=== PATIENT | male | born 1970 | race Caucasian/White ===

== ENCOUNTER 2017-02-10 17:06 | Emergency (ER) | payer OTHER ==
[2017-02-10] MEDS ORDERED: BUPIVACAINE HCL 0.5 % INJ/PF 30 ML SDV INJ ONE (17:59)
[2017-02-10] MEDS ORDERED: PENICILLIN V POTASSIUM 500 MG TABLET PO ONE (17:59)
[2017-02-10] MEDS ORDERED: HYDROCODONE/ACETAMINOPHEN 5-325 MG TABLET PO ONE (18:00)
[2017-02-10] MEDS ORDERED: HYDROCODONE/ACETAMINOPHEN 5-325 MG 6 TAB/DSPK PO PRN (18:00)
--- NOTE | 2017-02-10 18:20 | ER Document Report ---
HPI - HPI Patient complains to provider of: tooth ache Onset: Other - started on friday, 3 days ago Onset/Duration: Sudden Quality of pain: Achy, Throbbing Pain Level: 4 Associated Symptoms: Other - dental caries and fractured teeth Similar symptoms previously: No Recently seen / treated by doctor: No - CARDIOVASCULAR Cardiovascular: DENIES: Chest pain - DERM Skin Color: Normal Past Medical History - Social History Smoking Status: Former Smoker Chew tobacco use (# tins/day): No Frequency of alcohol use: Occasional Drug Abuse: None Family History: Reviewed & Not Pertinent Patient has suicidal ideation: No Patient has homicidal ideation: No Renal/ Medical History: Reports: Hx Kidney Stones. Denies: Hx Peritoneal Dialysis Past Surgical History: Reports: Hx Kidney (Renal Surgery) - stents - Immunizations Hx Diphtheria, Pertussis, Tetanus Vaccination: No Vertical Provider Document - CONSTITUTIONAL Agree With Documented VS: Yes Exam Limitations: No Limitations General Appearance: WD/WN, No Apparent Distress - INFECTION CONTROL TRAVEL OUTSIDE OF THE [place] IN LAST 30 DAYS: No - HEENT HEENT: Atraumatic, Normal ENT Exam, Normocephalic, PERRLA Mouth Diagram: 1 - dental abscess Notes: Uvula midline. Airway patent. No evidence of tonsillar enlargement, peritonsillar abscess, retropharyngeal abscess. - NECK Neck: Normal Inspection. negative: Lymphadenopathy-Left, Lymphadenopathy-Right - RESPIRATORY Respiratory: Breath Sounds Normal, No Respiratory Distress, Chest Non-Tender O2 Sat by Pulse Oximetry: 96 - CARDIOVASCULAR Cardiovascular: Regular Rate, Regular Rhythm, No Murmur - NEURO Level of Consciousness: Awake, Alert, Appropriate Motor/Sensory: No Motor Deficit, No Sensory Deficit Course - Re-evaluation Re-evalutation: 02/10/17 19:34 Is a 47-year-old male who is hemodynamic stable, no acute distress and afebrile. Patient was anesthetized bedside using 5 cc of Sensorcaine for digital block with complete resolution of his pain. I&D performed using 18- gauge and then scalpel to extend abscess with drainage of approximately 4 cc of purulent material. Patient initiated on antibiotics and pain control and told to follow-up with dentist. - Vital Signs Vital signs: Temp Pulse Resp BP Pulse Ox 98.5 F 101 H 20 134/90 H 96 02/10/17 17:08 02/10/17 17:08 02/10/17 17:08 02/10/17 17:08 02/10/17 17:08 Procedures - Incision and Drainage Face Type: Simple - dental abscess Anesthetic type: 0.5% Bupivacaine mL's of anesthetic: 5 Incision Method: Incision made with needle Amount/type of drainage: 4cc purulent material Mouth/Teeth picture: 1 - abscess Discharge - Discharge Clinical Impression: Dental abscess Condition: Good Disposition: HOME, SELF-CARE Instructions: Abscess ([facility]), [facility], Penicillin V K ([facility]), Oral Narcotic Medication ([facility]), Post Incision and Drainage Additional Instructions: Please follow-up with the [facility] to be evaluated by a dentist. Take your antibiotics as prescribed Prescriptions: Penicillin V Potassium [Penicillin Vk 500 mg Tablet] 500 mg PO QID 7 Days Forms: Elevated Blood Pressure [facility] [NO LOCAL MD] - Follow up in 1 week
[2017-02-10 19:01] VITALS: BP 148/86
== END 2017-02-10 18:59 | disposition home or self-care (01) ==
LOC: ER 17:06
PROC: 0C9WXZ0 Drainage of Upper Tooth, External Approach, Single (ICD-10-PCS; principal; 2017-02-10)
DX: K04.7 Periapical abscess without sinus (principal); K02.9 Dental caries, unspecified; Z87.442 Personal history of urinary calculi
CPT/HCPCS: 99282

== ENCOUNTER 2017-03-09 13:09 | Emergency (ER) | payer OTHER ==
[2017-03-09 13:31] VITALS: BP 145/108
--- NOTE | 2017-03-09 14:26 | ER Document Report ---
ED General - General Chief Complaint: Toothache Stated Complaint: MOUTH PAIN Time Seen by Provider: 03/09/17 14:04 Mode of Arrival: Ambulatory Information source: Patient Notes: 47 yr old male hx of dental abscess for which he was seem 2 weeks ago presents with complaitns of dental pain and abscess which started to drain. pt denies any fevers or chills, TRAVEL OUTSIDE OF THE [place] IN LAST 30 DAYS: No - HPI Onset: Other Onset/Duration: Persistent Quality of pain: Achy Severity: Mild Pain Level: 1 Associated symptoms: Other Exacerbated by: Food Relieved by: Denies Similar symptoms previously: Yes Recently seen / treated by doctor: Yes - Related Data Allergies/Adverse Reactions: No Known Allergies Allergy (Verified 03/09/17 13:30) Past Medical History - Social History Smoking Status: Never Smoker Cigarette use (# per day): No Chew tobacco use (# tins/day): No Smoking Education Provided: No Family History: Reviewed & Not Pertinent Renal/ Medical History: Reports: Hx Kidney Stones. Denies: Hx Peritoneal Dialysis Past Surgical History: Reports: Hx Kidney (Renal Surgery) - stents - Immunizations Hx Diphtheria, Pertussis, Tetanus Vaccination: No Review of Systems - Review of Systems Notes: REVIEW OF SYSTEMS: CONSTITUTIONAL : Denies fever, chills, or sweats. Denies recent illness. EENT: dental pain CARDIOVASCULAR: Denies chest pain. Denies palpitations or racing or irregular heart beat. Denies ankle edema. RESPIRATORY: Denies cough, cold, or chest congestion. Denies shortness of breath, difficulty breathing, or wheezing. GASTROINTESTINAL: Denies abdominal pain or distention. Denies nausea, vomiting , or diarrhea. Denies blood in vomitus, stools, or per rectum. Denies black, tarry stools. Denies constipation. GENITOURINARY: Denies difficulty urinating, painful urination, burning, frequency, blood in urine, or discharge. MUSCULOSKELETAL: Denies back or neck pain or stiffness. Denies joint pain or swelling. SKIN: Denies rash, lesions or sores. HEMATOLOGIC : Denies easy bruising or bleeding. LYMPHATIC: Denies swollen, enlarged glands. NEUROLOGICAL: Denies confusion or altered mental status. Denies passing out or loss of consciousness. Denies dizziness or lightheadedness. Denies headache. Denies weakness or paralysis or loss of use of either side. Denies problems with gait or speech. Denies sensory loss, numbness, or tingling. Denies seizures. PSYCHIATRIC: Denies anxiety or stress. Denies depression, suicidal ideation, or homicidal ideation. ALL OTHER SYSTEMS REVIEWED AND NEGATIVE. Dictation was performed using [employer] voice recognition software PHYSICAL EXAMINATION: GENERAL: Well-appearing, well-nourished and in no acute distress. HEAD: Atraumatic, normocephalic. EYES: Pupils equal round and reactive to light, extraocular movements intact, sclera anicteric, conjunctiva are normal. ENT: poor dentition,abscess above gum #11 NECK: Normal range of motion, supple without lymphadenopathy LUNGS: Breath sounds clear to auscultation bilaterally and equal. No wheezes rales or rhonchi. HEART: Regular rate and rhythm without murmurs ABDOMEN: Soft, nontender, nondistended abdomen. No guarding, no rebound. No masses appreciated. Musculoskeletal: Normal range of motion, no pitting or edema. No cyanosis. NEUROLOGICAL: Cranial nerves grossly intact. Normal speech, normal gait. Normal sensory, motor exams PSYCH: Normal mood, normal affect. SKIN: Warm, Dry, normal turgor, no rashes or lesions noted. Physical Exam - Vital signs Vitals: Temp Pulse Resp BP Pulse Ox 98.8 F 81 16 145/108 H 97 03/09/17 13:30 03/09/17 13:30 03/09/17 13:30 03/09/17 13:30 03/09/17 13:30 Course - Re-evaluation Re-evalutation: 03/09/17 15:07 Area was incised and drained patient will be started on antibiotics he has been given a list of dentists to follow-up within 1 week After performing a Medical Screening Examination, I estimate there is LOW risk for a DEEP SPACE INFECTION (e.g., JASON'S ANGINA OR RETROPHARYNGEAL ABSCESS), MENINGITIS, INTRACRANIAL HEMORRHAGE, or AIRWAY COMPROMISE, thus I consider the discharge disposition reasonable. Also, there is no evidence or peritonitis, sepsis, or toxicity. I have reevaluated this patient multiple times and no significant life threatening changes are noted. The patient and I have discussed the diagnosis and risks, and we agree with discharging home with close follow-up with the understanding that symptoms and presentations can change. We also discussed returning to the Emergency Department immediately if new or worsening symptoms occur. We have discussed the symptoms which are most concerning (e.g., changing or worsening pain, trouble swallowing or breathing, neck stiffness or fever) that necessitate immediate return. - Vital Signs Vital signs: Temp Pulse Resp BP Pulse Ox 98.8 F 81 16 145/108 H 97 03/09/17 13:30 03/09/17 13:30 03/09/17 13:30 03/09/17 13:30 03/09/17 13:30 Procedures - Incision and Drainage Left Mid- Face Time completed: 15:05 Type: Simple Anesthetic type: 1% Lidocaine mL's of anesthetic: 5 Blade size: 11 I&D procedure: Sterile dressing applied Incision Method: Incision made by scalpel Amount/type of drainage: small amoiunt of pus Discharge - Discharge Clinical Impression: Dental abscess, Dental abscess Condition: Stable Disposition: HOME, SELF-CARE Instructions: Abscess ([facility]) Prescriptions: Penicillin V Potassium [Penicillin Vk 500 mg Tablet] 500 mg PO Q6 #40 tablet
== END 2017-03-09 15:35 | disposition home or self-care (01) ==
LOC: ER 13:09
DX: K04.7 Periapical abscess without sinus (principal); K08.89 Other specified disorders of teeth and supporting structures
CPT/HCPCS: 99282

== ENCOUNTER 2017-04-15 16:21 | Emergency (ER) | payer OTHER ==
--- NOTE | 2017-04-15 16:39 | ER Document Report ---
ED General - General Chief Complaint: Probable Seizure Stated Complaint: POSSIBLE SEZIURE Time Seen by Provider: 04/15/17 16:25 Mode of Arrival: Medic Information source: Patient Notes: 47-year-old male presents after seizure-like episode with concerns of agitation per EMS. It appears 6 different men had to attempt to hold this patient on after his seizure episode patient was given Versed and has since calmed down and has no complaints. When I evaluate the patient physically he has no abnormalities is stable well-appearing no distress TRAVEL OUTSIDE OF THE [place] IN LAST 30 DAYS: No - HPI Onset: Just prior to arrival Onset/Duration: Sudden Quality of pain: No pain Severity: Mild Pain Level: Denies Associated symptoms: Other Exacerbated by: Denies Relieved by: Denies Similar symptoms previously: No Recently seen / treated by doctor: No - Related Data Allergies/Adverse Reactions: No Known Allergies Allergy (Verified 03/09/17 13:30) Past Medical History - Social History Smoking Status: Never Smoker Cigarette use (# per day): No Chew tobacco use (# tins/day): No Smoking Education Provided: No Family History: Reviewed & Not Pertinent Renal/ Medical History: Reports: Hx Kidney Stones. Denies: Hx Peritoneal Dialysis Past Surgical History: Reports: Hx Kidney (Renal Surgery) - stents - Immunizations Hx Diphtheria, Pertussis, Tetanus Vaccination: No Review of Systems - Review of Systems Notes: REVIEW OF SYSTEMS: CONSTITUTIONAL : Denies fever, chills, or sweats. Denies recent illness. EENT: Denies eye, ear, throat, or mouth pain or symptoms. Denies nasal or sinus congestion or discharge. Denies throat, tongue, or mouth swelling or difficulty swallowing. CARDIOVASCULAR: Denies chest pain. Denies palpitations or racing or irregular heart beat. Denies ankle edema. RESPIRATORY: Denies cough, cold, or chest congestion. Denies shortness of breath, difficulty breathing, or wheezing. GASTROINTESTINAL: Denies abdominal pain or distention. Denies nausea, vomiting , or diarrhea. Denies blood in vomitus, stools, or per rectum. Denies black, tarry stools. Denies constipation. GENITOURINARY: Denies difficulty urinating, painful urination, burning, frequency, blood in urine, or discharge. MUSCULOSKELETAL: Admits chronic back pain SKIN: Denies rash, lesions or sores. HEMATOLOGIC : Denies easy bruising or bleeding. LYMPHATIC: Denies swollen, enlarged glands. NEUROLOGICAL: Admits to seizure-like activity PSYCHIATRIC: Denies anxiety or stress. Denies depression, suicidal ideation, or homicidal ideation. ALL OTHER SYSTEMS REVIEWED AND NEGATIVE. Dictation was performed using [employer] voice recognition software PHYSICAL EXAMINATION: GENERAL: Well-appearing, well-nourished and in no acute distress. HEAD: Atraumatic, normocephalic. EYES: Pupils equal round and reactive to light, extraocular movements intact, sclera anicteric, conjunctiva are normal. ENT: Nares patent, oropharynx clear without exudates. Moist mucous membranes. NECK: Normal range of motion, supple without lymphadenopathy LUNGS: Breath sounds clear to auscultation bilaterally and equal. No wheezes rales or rhonchi. HEART: Regular rate and rhythm without murmurs ABDOMEN: Soft, nontender, nondistended abdomen. No guarding, no rebound. No masses appreciated. Musculoskeletal: Normal range of motion, no pitting or edema. No cyanosis. NEUROLOGICAL: Cranial nerves grossly intact. Normal speech, normal gait. Normal sensory, motor exams patient was able to ambulate with no difficulty PSYCH: Normal mood, normal affect. SKIN: Warm, Dry, normal turgor, no rashes or lesions noted. Physical Exam - Vital signs Vitals: Temp Pulse BP Pulse Ox 97.4 F 132 H 139/94 H 97 04/15/17 16:45 04/15/17 16:45 04/15/17 16:45 04/15/17 16:45 Course - Re-evaluation Re-evalutation: 04/15/17 16:37 Patient refuses to stay, he denies any symptoms he is alert oriented 4 he is able to ambulate. His girlfriend is in the room who agrees with his decision to leave. Patient otherwise in no distress I do not think this is a smart decision however given that he is oriented and understand the risks and benefits I will let him go After performing a Medical Screening Examination, I spoke with the patient at length in regards to leaving the hospital against medical advice. I do not believe the patient should leave but the patient is alert oriented x4, understands the risks and benefits of staying and leaving including disability and . Pt understands that he can return at any time for further care and is more than welcome to do so. Pt verbalizes this understanding. 04/15/17 18:28 - Vital Signs Vital signs: Temp Pulse Resp BP Pulse Ox 97.4 F 132 H 139/94 H 97 04/15/17 16:45 04/15/17 16:45 04/15/17 16:45 04/15/17 16:45 Discharge - Discharge Clinical Impression: Seizure, Aggressiveness Condition: Stable Disposition: HOME, SELF-CARE Instructions: New Seizure ([facility])
[2017-04-15 17:01] VITALS: BP 139/94
== END 2017-04-15 17:01 | disposition home or self-care (01) ==
LOC: ER 16:21
DX: R56.9 Unspecified convulsions (principal); R45.1 Restlessness and agitation
CPT/HCPCS: 99284

== ENCOUNTER 2020-01-18 13:17 | Emergency (ER) | payer OTHER ==
[2020-01-18 13:26] VITALS: BP 139/92
== END 2020-01-18 13:59 | disposition left against medical advice (07) ==
LOC: ER 13:17
DX: Z53.21 Procedure and treatment not carried out due to patient leaving prior to being seen by health care provider (principal)

== ENCOUNTER 2020-03-23 12:10 | Inpatient (IN) | payer SELFPAY ==
[2020-03-23 13:06] LABS: ABSOLUTE BASOPHILS # (AUTO) 0.1 10^3/uL (0.0-0.2); ABSOLUTE LYMPHOCYTES (AUTO) 1.4 10^3/uL (0.5-4.7); ABSOLUTE MONOCYTES (AUTO) 0.8 10^3/uL (0.1-1.4); ABSOLUTE NEUT (AUTO) 8.1 10^3/uL (1.7-8.2); BASOPHILS % (AUTO) 0.5 % (0-2); EOSINOPHILS % (AUTO) 0.3 % (0-6); HEMATOCRIT 46.2 % (37.9-51.0); HEMOGLOBIN 14.7 g/dL (13.5-17.0); LYMPHOCYTES % (AUTO) 13.3 % (13-45); MEAN CORPUSCULAR HEMOGLOBIN 26.6 pg (27.0-33.4); MEAN CORPUSCULAR HGB CONC 31.8 g/dL (32.0-36.0); MEAN CORPUSCULAR VOLUME 84 fl (80-97); MONOCYTES % (AUTO) 7.3 % (3-13); PLATELET COUNT 336 10^3/uL (150-450); RED BLOOD COUNT 5.51 10^6/uL (4.35-5.55); RED CELL DISTRIBUTION WIDTH 15.2 % (11.5-14.0); SEGMENTED NEUTROPHILS % (AUTO) 78.6 % (42-78); TOTAL CELLS COUNTED % (AUTO) 100 %; WHITE BLOOD COUNT 10.3 10^3/uL (4.0-10.5)
[2020-03-23 13:12] LABS: ALBUMIN 4.2 g/dL (3.5-5.0); ALKALINE PHOSPHATASE 84 U/L (38-126); ANION GAP 11 (5-19); ASPARTATE AMINO TRANSFERASE 58 U/L (17-59); BILIRUBIN,DIRECT 0.5 mg/dL (0.0-0.4); BILIRUBIN,TOTAL 1.9 mg/dL (0.2-1.3); BLOOD UREA NITROGEN 19 mg/dL (7-20); CALCIUM 9.5 mg/dL (8.4-10.2); CARBON DIOXIDE 27 mmol/L (22-30); CHLORIDE 95 mmol/L (98-107); CREATINE KINASE 140 U/L (55-170); GLUCOSE 97 mg/dL (75-110); POTASSIUM 4.4 mmol/L (3.6-5.0); TOTAL PROTEIN 7.2 g/dL (6.3-8.2)
[2020-03-23] MEDS ORDERED: FUROSEMIDE INJ/PF 40 MG/4 ML SDV IV ONE (13:28)
--- NOTE | 2020-03-23 13:28 | ER Document Report ---
ED General - General Chief Complaint: Swelling Stated Complaint: BODY SWELLING Time Seen by Provider: 03/23/20 12:35 Notes: HPI: 50-year-old male who presents today stating some progressive edema to bilateral lower extremities including the scrotum region. Patient does state some shortness of breath. He denies any fevers, cough, chest pain, or vomiting. Patient states he did see an urgent care clinic around 6 weeks ago when this started and was placed on a "fluid pill". He denies any history of heart failure or cardiac abnormalities. ROS: See HPI All other review of systems reviewed and otherwise negative Reviewed vital signs and nursing note as charted by RN. PHYSICAL EXAM: CONSTITUTIONAL: Alert and oriented and responds appropriately to questions. Well-appearing; well-nourished HEAD: Normocephalic; atraumatic EYES: PERRL; Conjunctivae clear, sclerae non-icteric ENT: Normal nose; no rhinorrhea; moist mucous membranes; pharynx without lesions noted NECK: Supple without meningismus; non-tender; no cervical lymphadenopathy, no masses CARD: Tachycardic but regular; no murmurs; symmetric distal pulses RESP: Normal chest excursion without splinting or tachypnea; breath sounds clear and equal bilaterally; minimal rales to the bases ABD/GI: Normal bowel sounds; very elevated BMI; soft, non-tender; no palpable or ganomegaly or masses BACK: The back appears normal and is non-tender to palpation EXT: Normal ROM in all joints; non-tender to palpation; 2-3+ pitting edema up to the lower abdomen U: Patient has extensive scrotal edema with no fluctuance, tenderness, or erythema SKIN: No acute lesions noted NEURO: CN 2-12 intact; 5/5 bilateral upper and lower extremity strength with sensation intact to light touch PSYCH: The patient's mood and manner are appropriate. Grooming and personal hygiene are appropriate. TRAVEL OUTSIDE OF THE [place] IN LAST 30 DAYS: No - Related Data Allergies/Adverse Reactions: No Known Allergies Allergy (Verified 03/23/20 12:54) Past Medical History - Social History Smoking Status: Former Smoker Frequency of alcohol use: daily Family History: Reviewed & Not Pertinent Renal/ Medical History: Reports: Hx Kidney Stones. Denies: Hx Peritoneal Dialysis Past Surgical History: Reports: Hx Kidney (Renal Surgery) - stents - Immunizations Hx Diphtheria, Pertussis, Tetanus Vaccination: No Physical Exam - Vital signs Vitals: Temp 98.8 F 03/23/20 12:45 Course - Re-evaluation Re-evalutation: Given the history and physical examination, I will assess for the possibility of a myocardial infarction, bilateral pleural effusions, hepatic insufficiency, or other cause of this extensive edema. I do anticipate the patient will require admission and extensive diuresis with cardiology consultation. EKG shows a heart rate of 121, sinus tachycardia, poor R wave progression, no obvious ST elevation or depression. 03/23/20 13:27 Labs initially as recorded. Awaiting BNP. 03/23/20 13:29 X-ray to my pulmonary read shows what appears to be a right-sided pleural effusion. 03/23/20 13:43 Troponin as recorded. BNP is pending. The radiologist agrees regarding the right pleural effusion. Heart rate is currently 106 with a blood pressure of 145/105. I have discussed the case with the hospitalist. I have provided 80 mg of Lasix IV. Patient will be admitted for further evaluation and most likely an echo of the heart. - Vital Signs Vital signs: Temp Pulse Resp BP Pulse Ox 98.8 F 03/23/20 12:45 - Laboratory Result Diagrams: 03/23/20 12:32 03/23/20 12:32 Laboratory results interpreted by me: 03/23/20 03/23/20 12:32 12:32 MCH 26.6 L MCHC 31.8 L RDW 15.2 H Seg Neutrophils % 78.6 H Sodium 132.7 L Chloride 95 L Total Bilirubin 1.9 H Direct Bilirubin 0.5 H Discharge - Discharge Clinical Impression: Lower extremity edema, Tachycardia, Pleural effusion, right Condition: Fair Disposition: ADMITTED INPATIENT Admitting Provider: Jovanny (Hospitalist) Unit Admitted: Telemetry
--- NOTE | 2020-03-23 13:29 | RADIOLOGY REPORT (SQ) ---
EXAM DESCRIPTION: CHEST 2 VIEWS IMAGES COMPLETED DATE/TIME: 03/23/2020 1:21 pm REASON FOR STUDY: swelling COMPARISON: None. EXAM PARAMETERS: NUMBER OF VIEWS: two views TECHNIQUE: Digital Frontal and Lateral radiographic views of the chest acquired. RADIATION DOSE: NA LIMITATIONS: none FINDINGS: LUNGS AND PLEURA: Linear densities in the right lower lung. Right pleural effusion. Left lung clear. MEDIASTINUM AND HILAR STRUCTURES: No masses or contour abnormalities. HEART AND VASCULAR STRUCTURES: Cardiomegaly. BONES: No acute findings. HARDWARE: None in the chest. OTHER: No other significant finding. IMPRESSION: CARDIOMEGALY. SCATTERED ATELECTASIS IN THE RIGHT LUNG WITH RIGHT PLEURAL EFFUSION. TECHNICAL DOCUMENTATION: JOB ID: [id number] [employer]- All Rights Reserved Reading location - IP/workstation name: [email or web address]
[2020-03-23 13:35] LABS: CREATINE KINASE MB 3.61 ng/mL (<4.55)
[2020-03-23 13:38] LABS: TROPONIN I 0.045 ng/mL
[2020-03-23] MEDS ORDERED: ASPIRIN 325 MG TABLET PO ONE (13:39)
[2020-03-23] MEDS ORDERED: IPRATROPIUM/ALBUTEROL 0.5-2.5 MG/3 ML AMPUL NEB PRN (13:46)
[2020-03-23] MEDS ORDERED: ONDANSETRON HCL INJ/PF 4 MG/2 ML SDV IV PRN (13:46)
[2020-03-23] MEDS ORDERED: ACETAMINOPHEN 325 MG TABLET PO PRN (13:46)
[2020-03-23] MEDS ORDERED: PROMETHAZINE HCL INJ 25 MG/1 ML VIAL IV PRN (13:46)
[2020-03-23 13:52] LABS: APPEARANCE,URINE SLIGHTLY-CLOUDY; BILIRUBIN,URINE NEGATIVE (NEGATIVE); GLUCOSE, URINE NEGATIVE (NEGATIVE); KETONES,URINE NEGATIVE (NEGATIVE); LEUKOCYTE ESTERASE,URINE TRACE (NEGATIVE); NITRITE,URINE NEGATIVE (NEGATIVE); PROTEIN,URINE 30 mg/dL (NEGATIVE); URINE SPECIFIC GRAVITY 1.017
[2020-03-23 13:58] LABS: INTERNATIONAL RATION (INR) 1.29; PROTHROMBIN TIME 16.3 SEC (11.4-15.4)
[2020-03-23 14:00] LABS: COLOR,URINE DARK YELLOW
[2020-03-23] MEDS ORDERED: HYDRALAZINE HCL INJ/PF 20 MG/1 ML SDV IV PRN (14:47)
--- NOTE | 2020-03-23 14:58 | PDOC H&P ---
History of Present Illness Admission Date/PCP: 03/23/20 14:03 History of Present Illness: THAD HARRINGTON is a 50 year old male with no significant past medical history except for nephrolithiasis, obesity presenting to ED complaining of worsening shortness of breath and lower extremity edema extending up to his scrotums. About 2 months ago patient noticed that his lower extremity were swelling, was seen by PCP and cook 3 pastry, was placed on beta-blockers, Lasix and Aldactone, patient stopped taking his beta-blockers as he was developing wheezing, patient is taking his Lasix however he has noted his lower extremity edema is extending all the way to his scrotum. Denies any history of CKD, cirrhosis, CAD, IV drug abuse, hypertension, does endorse history of snoring, patient stated he cannot walk several feet without getting short of breath, endorses history of orthopnea, paroxysmal nocturnal dyspnea but denies any chest pain, lightheadedness, palpitation, syncope or presyncope. Denies any fever, headache, nausea, chills, diarrhea, constipation or any urinary symptoms. In ED he was noted to have elevated BNP, troponins and cardiomegaly on chest x- ray. Hospital was consulted for admission. Social History Smoking Status: Former Smoker Electronic Cigarette use?: Yes Family History Family History: Reviewed & Not Pertinent Parental Family History Reviewed: Yes Children Family History Reviewed: Yes Sibling(s) Family History Reviewed.: Yes Medication/Allergy Home Medications: Carvedilol [Coreg 12.5 mg Tablet] 12.5 mg PO Q12 03/23/20 Furosemide [Lasix 40 mg Tablet] 40 mg PO DAILY 03/23/20 Spironolactone [Aldactone 25 mg Tablet] 25 mg PO DAILY 03/23/20 Tamsulosin HCl [Flomax] 0.4 mg PO DAILY 03/23/20 Allergies/Adverse Reactions: No Known Allergies Allergy (Verified 03/23/20 12:54) Review of Systems Review of Systems: as per hpi Physical Exam Vital Signs: Temp Pulse Resp BP Pulse Ox 98.8 F 03/23/20 12:45 Intake & Output 03/22/20 03/23/20 03/24/20 06:59 06:59 06:59 Weight 135.4 kg General appearance: PRESENT: morbidly obese Head exam: PRESENT: atraumatic, normocephalic Neck exam: ABSENT: carotid bruit, JVD, lymphadenopathy, thyromegaly Respiratory exam: PRESENT: crackles. ABSENT: rales, rhonchi, wheezes Cardiovascular exam: PRESENT: RRR. ABSENT: diastolic murmur, rubs, systolic murmur Pulses: PRESENT: normal dorsalis pedis pul GI/Abdominal exam: PRESENT: distended, normal bowel sounds, soft. ABSENT: guarding, mass, organolmegaly, rebound, tenderness Gentrourinary exam: PRESENT: scrotal swelling Extremities exam: PRESENT: full ROM, other - 3+. ABSENT: calf tenderness, clubbing, pedal edema Neurological exam: PRESENT: alert, awake, oriented to person, oriented to place, oriented to time, oriented to situation, CN II-XII grossly intact. ABSENT: motor sensory deficit Results Laboratory Results: 03/23/20 12:32 03/23/20 12:32 03/23/20 03/23/20 03/23/20 12:32 12:32 12:41 WBC 10.3 RBC 5.51 Hgb 14.7 Hct 46.2 MCV 84 MCH 26.6 L MCHC 31.8 L RDW 15.2 H Plt Count 336 Seg Neutrophils % 78.6 H Sodium 132.7 L Potassium 4.4 Chloride 95 L Carbon Dioxide 27 Anion Gap 11 BUN 19 Creatinine 1.08 Est GFR ( Amer) > 60 Glucose 97 Calcium 9.5 Total Bilirubin 1.9 H AST 58 Alkaline Phosphatase 84 Total Protein 7.2 Albumin 4.2 Urine Color DARK YELLOW Urine Appearance SLIGHTLY-CLOUDY Urine pH 5.0 Ur Specific [place] 1.017 Urine Protein 30 H Urine Glucose (UA) NEGATIVE Urine Ketones NEGATIVE Urine Blood SMALL H Urine Nitrite NEGATIVE Ur Leukocyte Esterase TRACE H Urine WBC (Auto) 3 Urine RBC (Auto) 1 03/23/20 03/23/20 03/23/20 12:32 12:32 12:32 Creatine Kinase 140 CK-MB (CK-2) 3.61 Troponin I 0.045 NT-Pro-B Natriuret Pep [id number] H Impressions: Chest X-Ray 03/23/20 00:00 IMPRESSION: CARDIOMEGALY. SCATTERED ATELECTASIS IN THE RIGHT LUNG WITH RIGHT PLEURAL EFFUSION. Assessment and Plan - Diagnosis (1) Anasarca Is this a current diagnosis for this admission?: Yes Plan: Mildly elevated troponins, elevated proBNP. Endorses dyspnea on exertion, orthopnea and PND. Denies any chest pain, history of cirrhosis, CKD or CAD. COURTNEY and morbid obesity. Patient does not use CPAP. Untreated COURTNEY can cause heart failure long-term. We will admit to telemetry, strict in and out, daily waiting, IV diuretics, 2D echo, beta-blockers, YVONNE. Meanwhile will get hemoglobin A1c,lipid panel. We will also quantify urine protein. (2) COURTNEY (obstructive sleep apnea) Is this a current diagnosis for this admission?: Yes Plan: History of morbid obesity and COURTNEY. Diet and lifestyle modification recommended. Outpatient nocturnal polysomnography. Nocturnal CPAP. (3) Pleural effusion, right Is this a current diagnosis for this admission?: Yes Plan: Most likely due to #1. Plan as per #1. (4) Morbid obesity with BMI of 40.0-44.9, adult Is this a current diagnosis for this admission?: Yes Plan: BMI 42.8. We will obtain TSH, hemoglobin A1c and lipid panel. Diet and lifestyle modification recommended. - Time Time Spent with patient: 35 or more minutes Smoking Cessation Education: 3 to 10 minutes Medications reviewed and adjusted accordingly: Yes Anticipated Discharge Disposition: Home, Self Care Anticipated Discharge Timeframe: within 72 hours
[2020-03-23] MEDS: FUROSEMIDE INJ/PF 40 MG/4 ML SDV IV SCH ×2 (15:05→21:29)
--- NOTE | 2020-03-23 15:30 | EKG REPORT ---
SEVERITY:- ABNORMAL ECG - SINUS TACHYCARDIA PROBABLE LEFT ATRIAL ABNORMALITY NONSPECIFIC INTRAVENTRICULAR CONDUCTION DELAY CONSIDER ANTEROSEPTAL INFARCT : Confirmed by: Neto Sierra MD 23-Mar-2020 15:30:13
[2020-03-23 16:15] LABS: TRIGLYCERIDES 88 mg/dL (<150)
[2020-03-23 16:20] LABS: URINE AMPHETAMINES SCREEN NEGATIVE; URINE BARBITURATES SCREEN NEGATIVE; URINE BENZODIAZEPINES SCREEN NEGATIVE; URINE COCAINE SCREEN NEGATIVE; URINE METHADONE SCREEN NEGATIVE; URINE PHENCYCLIDINE SCREEN NEGATIVE
[2020-03-23 16:22] LABS: URINE CREATININE 49.3 mg/dL (22-328)
[2020-03-23 16:27] LABS: DIRECT LDL 130 mg/dL (<100)
[2020-03-23 16:31] LABS: URINE MARIJUANA (THC) SCREEN UNCONFIRMED POSITIVE
[2020-03-23 16:37] LABS: FREE T3 3.5 pg/mL (2.77-5.27); FREE T4 (FREE THYROXINE) 2.11 ng/dL (0.78-2.19)
[2020-03-23 16:51] LABS: THYROID STIMULATING HORMONE 3.78 uIU/mL (0.47-4.68)
[2020-03-23] MEDS: TAMSULOSIN HCL 0.4 MG CAP.SR.24H PO SCH (17:42)
[2020-03-23] MEDS: OXYCODONE-ACETAMINOPHEN 5-325 MG TABLET PO PRN (21:29)
[2020-03-23] MEDS: FAMOTIDINE 20 MG TABLET PO SCH (21:30)
[2020-03-24] MEDS: FUROSEMIDE INJ/PF 40 MG/4 ML SDV IV SCH ×3 (05:46→22:27)
[2020-03-24 05:48] LABS: ABSOLUTE BASOPHILS # (AUTO) 0.1 10^3/uL (0.0-0.2); ABSOLUTE EOSINOPHILS # (AUTO) 0.1 10^3/uL (0.0-0.6); ABSOLUTE LYMPHOCYTES (AUTO) 1.3 10^3/uL (0.5-4.7); ABSOLUTE MONOCYTES (AUTO) 0.7 10^3/uL (0.1-1.4); ABSOLUTE NEUT (AUTO) 5.7 10^3/uL (1.7-8.2); BASOPHILS % (AUTO) 0.7 % (0-2); EOSINOPHILS % (AUTO) 1.1 % (0-6); LYMPHOCYTES % (AUTO) 16.3 % (13-45); MEAN CORPUSCULAR HEMOGLOBIN 27.3 pg (27.0-33.4); MEAN CORPUSCULAR HGB CONC 32.6 g/dL (32.0-36.0); MEAN CORPUSCULAR VOLUME 84 fl (80-97); MONOCYTES % (AUTO) 8.4 % (3-13); PLATELET COUNT 286 10^3/uL (150-450); RED BLOOD COUNT 5.14 10^6/uL (4.35-5.55); SEGMENTED NEUTROPHILS % (AUTO) 73.5 % (42-78); TOTAL CELLS COUNTED % (AUTO) 100 %; WHITE BLOOD COUNT 7.7 10^3/uL (4.0-10.5)
[2020-03-24 06:10] LABS: ANION GAP 12 (5-19); BLOOD UREA NITROGEN 21 mg/dL (7-20); CARBON DIOXIDE 25 mmol/L (22-30); CHLORIDE 97 mmol/L (98-107); GLUCOSE 106 mg/dL (75-110); PHOSPHORUS 4.4 mg/dL (2.5-4.5); POTASSIUM 3.9 mmol/L (3.6-5.0)
[2020-03-24] MEDS: DOCUSATE SODIUM 100 MG/10 ML UDC PO SCH (09:50)
[2020-03-24] MEDS: TAMSULOSIN HCL 0.4 MG CAP.SR.24H PO SCH (09:51)
[2020-03-24] MEDS: FAMOTIDINE 20 MG TABLET PO SCH ×2 (09:51→22:26)
[2020-03-24] MEDS: ENOXAPARIN SODIUM INJ 40 MG/0.4 ML DISP.SYRIN SUBCUT SCH (09:53)
[2020-03-24] MEDS ORDERED: DILTIAZEM HCL INJ 25 MG/5 ML VIAL IV ONE ×2 (09:58→17:15)
[2020-03-24] MEDS ORDERED: METOPROLOL TARTRATE PF/INJ 5 MG/5 ML SDV IV ONE (10:00)
[2020-03-24] MEDS ORDERED: DILTIAZEM HCL 30 MG TABLET PO ONE (10:30)
--- NOTE | 2020-03-24 15:31 | PDOC PROGRESS REPORT ---
Subjective Progress Note for:: 03/24/20 Subjective:: THAD HARRINGTON is a 50 year old male with no significant past medical history except for nephrolithiasis, obesity presenting to ED complaining of worsening shortness of breath and lower extremity edema extending up to his scrotums. About 2 months ago patient noticed that his lower extremity were swelling, was seen by PCP and rn access, was placed on beta-blockers, Lasix and Aldactone, patient stopped taking his beta-blockers as he was developing wheezing, patient is taking his Lasix however he has noted his lower extremity edema is extending all the way to his scrotum. Denies any history of CKD, cirrhosis, CAD, IV drug abuse, hypertension, does endorse history of snoring, patient stated he cannot walk several feet without getting short of breath, endorses history of orthopnea, paroxysmal nocturnal dyspnea but denies any chest pain, lightheadedness, palpitation, syncope or presyncope. Denies any fever, headache, nausea, chills, diarrhea, constipation or any urinary symptoms. In ED he was noted to have elevated BNP, troponins and cardiomegaly on chest x- ray. Hospital was consulted for admission. 03/24/2020. No acute events overnight. Patient said that he could not sleep much as he has been peeing all night, reports mild improvement of dyspnea on exertion, still has 3+ pitting edema and scrotal swelling, denies any fever, chills, nausea, vomiting, diarrhea, constipation or any urinary symptoms. Reason For Visit: ANASARCA Physical Exam Vital Signs: Temp Pulse Resp BP Pulse Ox 98.0 F 130 H 19 136/84 H 98 03/24/20 12:30 03/24/20 14:05 03/24/20 12:30 03/24/20 12:30 03/24/20 12:30 Intake & Output 03/23/20 03/24/20 03/25/20 06:59 06:59 06:59 Intake Total 240 705 Output Total 870 Balance -630 705 Weight 129 kg 131.1 kg General appearance: PRESENT: no acute distress, obese, well-developed, well- nourished Head exam: PRESENT: atraumatic, normocephalic Respiratory exam: PRESENT: clear to auscultation caty. ABSENT: rales, rhonchi, wheezes Cardiovascular exam: PRESENT: RRR. ABSENT: diastolic murmur, rubs, systolic murmur GI/Abdominal exam: PRESENT: normal bowel sounds, soft. ABSENT: distended, guarding, mass, organolmegaly, rebound, tenderness Extremities exam: PRESENT: +2 edema Neurological exam: PRESENT: alert, awake, oriented to person, oriented to place, oriented to time, oriented to situation, CN II-XII grossly intact. ABSENT: motor sensory deficit Results Laboratory Results: 03/24/20 05:15 03/24/20 05:15 03/23/20 03/23/20 03/24/20 15:50 15:50 05:15 WBC 7.7 RBC 5.14 Hgb 14.0 Hct 43.0 MCV 84 MCH 27.3 MCHC 32.6 RDW 15.0 H Plt Count 286 Seg Neutrophils % 73.5 Sodium Potassium Chloride Carbon Dioxide Anion Gap BUN Creatinine Est GFR ( Amer) Glucose Calcium Phosphorus Magnesium Triglycerides 88 Cholesterol 162.20 LDL Cholesterol Direct 130 H VLDL Cholesterol 18.0 HDL Cholesterol 23 L TSH 3.78 Free T4 2.11 Free T3 pg/mL 3.50 03/24/20 05:15 WBC RBC Hgb Hct MCV MCH MCHC RDW Plt Count Seg Neutrophils % Sodium 134.2 L Potassium 3.9 Chloride 97 L Carbon Dioxide 25 Anion Gap 12 BUN 21 H Creatinine 1.07 Est GFR ( Amer) > 60 Glucose 106 Calcium 9.0 Phosphorus 4.4 Magnesium 1.9 Triglycerides Cholesterol LDL Cholesterol Direct VLDL Cholesterol HDL Cholesterol TSH Free T4 Free T3 pg/mL 03/23/20 03/23/20 03/23/20 12:32 12:32 12:32 Creatine Kinase 140 CK-MB (CK-2) 3.61 Troponin I 0.045 NT-Pro-B Natriuret Pep 87558 H 03/23/20 15:50 Creatine Kinase CK-MB (CK-2) Troponin I 0.040 NT-Pro-B Natriuret Pep Impressions: Chest X-Ray 03/23/20 00:00 IMPRESSION: CARDIOMEGALY. SCATTERED ATELECTASIS IN THE RIGHT LUNG WITH RIGHT PLEURAL EFFUSION. Assessment and Plan - Diagnosis (1) Anasarca Is this a current diagnosis for this admission?: Yes Plan: Mildly elevated troponins, elevated proBNP. Endorses dyspnea on exertion, orthopnea and PND. Denies any chest pain, history of cirrhosis, CKD or CAD. COURTNEY and morbid obesity. Patient does not use CPAP. Untreated COURTNEY can cause heart failure long-term. We will admit to telemetry, strict in and out, daily waiting, IV diuretics, 2D echo, beta-blockers, YVONNE. Meanwhile will get hemoglobin A1c,lipid panel. We will also quantify urine protein. (2) COURTNEY (obstructive sleep apnea) Is this a current diagnosis for this admission?: Yes Plan: History of morbid obesity and COURTNEY. Diet and lifestyle modification recommended. Outpatient nocturnal polysomnography. Nocturnal CPAP. (3) Pleural effusion, right Is this a current diagnosis for this admission?: Yes Plan: Most likely due to #1. Plan as per #1. (4) Morbid obesity with BMI of 40.0-44.9, adult Is this a current diagnosis for this admission?: Yes Plan: BMI 42.8. We will obtain TSH, hemoglobin A1c and lipid panel. Diet and lifestyle modification recommended. - Time Time Spent with patient: 25-34 minutes Medications reviewed and adjusted accordingly: Yes Anticipated Discharge Disposition: Home, Self Care Anticipated Discharge Timeframe: within 36 hours
--- NOTE | 2020-03-24 19:41 | PDOC CONSULTATION ---
Consultation-Blank Consultation: CARDIOLOGY PROGRESS NOTE by Dr. Munira Godwin on 03/24/2020. Patient seen at 6:15 PM. 60 minutes spent with patient more than 50% of time spent in direct patient care. CONSULT REQUESTING PHYSICIAN: Dr. Hoyt. REASON FOR CONSULTATION: Patient with shortness of breath, leg edema, and symptoms of biventricular heart failure. HISTORY OF PRESENT ILLNESS: Patient is a 50-year-old male with a prior history of nephrolithiasis states that since the last 3 months has been having progressively increasing shortness of breath with PND and. He denies orthopnea but states that he does not sleep on his back but sleeps on his side he also complains of palpitations and rapid heartbeat. He was seen by a clinical technician and placed on Lasix, spironolactone and Coreg. The patient was not placed on an YVONNE inhibitor. The patient does not recollect having any echocardiogram or other test done. The patient states that the Coreg made him wheeze and very short of breath and hence he stopped taking this. He denies hypertension. He quit smoking long time ago and denies any documented COPD. He has no history of diabetes mellitus or chronic kidney disease. He states he has had kidney stone removed in the past and now has another kidney stone which where it migrates has pain. The patient states that since stopping the Coreg he will he started taking the diuretics. He notices increasing leg edema and shortness of breath with rest shortness of breath. He also had significant leg edema and weight gain. He also has episodes of PND. He also states that his heart rate is always fast and in the 140s to 150s. The monitor here shows sinus tachycardia. There are no ventricular arrhythmias seen. The patient was given Cardizem with no effect on his heart rate. He denies any syncope. He denies chest pain or discomfort. There is no history of coronary artery disease. He was brought into the emergency room and had an elevated BNP and symptoms and since clinical findings suggestive of acute on chronic biventricular failure. His echocardiogram shows severely reduced LV ejection fraction of the LV being moderately dilated. He also has moderate pulmonary hypertension. There is no history of TIA CVA. He also states since the last few weeks with escalation of the heart failure his noticed that he stops breathing and he snores loudly. The patient is obese and hence with the pulmonary hypertension needs sleep apnea to be excluded or diagnosed. If indeed the patient has sleep apnea he would benefit from CPAP at night. He denies diabetes mellitus, but this admission his hemoglobin A1c is 6.6. There is no history of thyroid disease. He has a history of enlarged prostate on Flomax he is asymptomatic. Social History Smoking Status: Former Smoker Electronic Cigarette use?: Yes Family History Family History: Reviewed & Not Pertinent Parental Family History Reviewed: Yes Children Family History Reviewed: Yes Sibling(s) Family History Reviewed.: Yes Medication/Allergy Home Medications: Carvedilol [Coreg 12.5 mg Tablet] 12.5 mg PO Q12 03/23/20 Furosemide [Lasix 40 mg Tablet] 40 mg PO DAILY 03/23/20 Spironolactone [Aldactone 25 mg Tablet] 25 mg PO DAILY 03/23/20 Tamsulosin HCl [Flomax] 0.4 mg PO DAILY 03/23/20 Allergies/Adverse Reactions: CONSTITUTIONAL: Denies any fever chills or rigors. HEAD: Denies headaches or head injury. EYES: No history of amblyopia diplopia no history amaurosis fugax. EARS: No hearing loss. No tinnitus. MOUTH: No history of altered taste sensation. No ulcers in the mouth. NOSE: No history of hayfever. No history of nosebleeds. THROAT: No history of odynophagia or dysphagia. SKIN: There is no pruritus. There is no LH discoloration of the skin. There is no easy bruisability. NECK: There is no neck swelling or neck pain. LUNGS: The patient has symptoms suggestive of sleep apnea. He has no diagnosis of COPD but the patient has been ex-smoker. History of wheezing with Coreg. HEART: Symptoms of acute on chronic biventricular failure with leg edema and palpitations. There is no syncope. No history of myocardial infarction or anginal symptoms. GI: No history of fatty food intolerance. Appetite is good. No history of altered bowel movements. No history of GI bleed. ENDOCRINE: No history of diabetes mellitus or thyroid disease. With this admission his hemoglobin A1c is 6.6? Prediabetes. No polydipsia polyuria. No history of heat or cold intolerance. RENAL: No history of chronic kidney disease. History of nephrolithiasis present. No symptoms of UTI. History of enlarged prostate symptoms controlled with Flomax. MUSCULOSKELETAL: Denies arthritis or collagen vascular disease. He states he recently noticed a swelling in the back of his left forearm. Although not inflamed or tender he states that he feels discomfort or sometimes pain when he leans on the swelling with his elbow. METABOLIC: History of obesity present. Denies hyperlipidemia. But is lab work this admission shows a low HDL level and a high LDL level. Hence the patient does have hyperlipidemia. There is no history of gout gout. Denies: No history of TIA CVA. No history headaches migraines or seizures. PSYCHIATRIC: No history of anxiety or depression. No history of suicidal ideation. No history of homicidal ideation. HEMATOLOGICAL: No history of DVT. No history of bleeding diathesis. No history of blood dyscrasias. No Known Allergies Allergy (Verified 03/23/20 12:54) RESUSCITATION STATUS: The patient is a full code. His is surrogate healthcare decision maker Current Medications Generic Name Dose Route Start Last Admin Trade Name Freq PRN Reason Stop Dose Admin Acetaminophen 325 mg 03/23/20 13:46 Tylenol 325 Mg Tablet PO 04/22/20 13:45 Q4HP PRN FEVER >101 Albuterol/Ipratropium 3 ml 03/23/20 13:46 Duoneb 3 Ml Ampul NEB 04/22/20 13:45 RTQ6HP PRN SHORTNESS OF BREATH Docusate Sodium 100 mg 03/24/20 10:00 03/24/20 09:50 Colace Udc 100 Mg/10 Ml Oral Soln PO 04/23/20 09:59 Not Given DAILY CARLA Enoxaparin Sodium 40 mg 03/24/20 10:00 03/24/20 09:53 Lovenox Inj 40 Mg/0.4 Ml Disp.Syrin SUBCUT 04/23/20 09:59 40 mg DAILY CARLA Administration Famotidine 20 mg 03/23/20 22:00 03/24/20 22:26 Pepcid 20 Mg Tablet PO 04/22/20 21:59 20 mg Q12 CARLA Administration Furosemide 40 mg 03/23/20 14:30 03/24/20 22:27 Lasix Inj/Pf 40 Mg/4 Ml Sdv IV 04/22/20 14:29 40 mg Q8 CARLA Administration Hydralazine HCl 10 mg 03/23/20 14:47 Apresoline Inj/Pf 20 Mg/1 Ml Sdv IV 04/22/20 14:46 Q3HP PRN Give For Sbp > [150] Ondansetron HCl 4 mg 03/23/20 13:46 Zofran Inj/Pf 4 Mg/2 Ml Sdv IV 04/22/20 13:45 Q4HP PRN FOR NAUSEA/VOMITING Oxycodone/Acetaminophen 1 tab 03/23/20 13:46 03/23/20 21:29 Percocet 5-325 Mg Tablet PO 03/30/20 13:45 1 tab Q4HP PRN Administration FOR PAIN SCALE 3-5 Promethazine HCl 12.5 mg 03/23/20 13:46 Phenergan Inj 25 Mg/1 Ml Vial IV 04/22/20 13:45 Q4HP PRN FOR UNRESOLVED NAUSEA/VOMITING Simvastatin 10 mg 03/24/20 22:00 03/24/20 22:27 Zocor 10 Mg Tablet PO 04/23/20 21:59 10 mg QHS CARLA Administration Tamsulosin HCl 0.4 mg 03/23/20 16:00 03/24/20 09:51 Flomax 0.4 Mg Cap.Sr PO 04/22/20 15:59 0.4 mg DAILY CRALA Administration Discontinued Medications Generic Name Dose Route Start Last Admin Trade Name Freq PRN Reason Stop Dose Admin Aspirin 325 mg 03/23/20 13:39 03/23/20 14:05 Aspirin 325 Mg Tablet PO 03/23/20 13:40 325 mg NOW ONE Administration Diltiazem HCl 25 mg 03/24/20 09:58 Cardizem Inj 25 Mg/5 Ml Vial IV 03/24/20 09:59 NOW ONE Diltiazem HCl 30 mg 03/24/20 10:30 03/24/20 10:21 Cardizem 30 Mg Tablet PO 03/24/20 10:31 30 mg NOW ONE Administration Diltiazem HCl 5 mg 03/24/20 17:15 03/24/20 17:27 Cardizem Inj 25 Mg/5 Ml Vial IV 03/24/20 17:16 5 mg NOW ONE Administration Furosemide 80 mg 03/23/20 13:28 03/23/20 14:05 Lasix Inj/Pf 40 Mg/4 Ml Sdv IV 03/23/20 13:29 80 mg NOW ONE Administration Metoprolol Tartrate 2.5 mg 03/24/20 10:00 03/24/20 09:57 Lopressor Inj/Pf 5 Mg/5 Ml Sdv IV 03/24/20 10:01 Not Given NOW ONE Review of Systems Review of Systems: Physical EXAMINATION: The patient is moderate to morbidly obese. He is well- groomed. Selected Entries 03/24/20 16:46 Temperature 98.0 F Temperature Oral Source Pulse Rate 128 H Respiratory 18 Rate Blood Pressure 126/86 H Blood Pressure 99 Mean BP Location Left Arm BP Position Sitting O2 Sat by Pulse 96 Oximetry Oxygen Delivery Room Air Method HEAD: Is atraumatic normocephalic. EYES: Pupils are equal round regular reactive to light accommodation. Extraocular movements are normal. There is no conjunctival pallor. There is no scleral icterus. EARS: Tympanic membranes are intact. External auditory canals are clear. NOSE: There is no deviated nasal septum. There is no inflammation of the nasal mucous membrane. MOUTH: Mucous membranes of mouth are moist. Tongue is moist. There is no ulcers. THROAT: There is no redness of the oropharynx. There is no exudates. SKIN: There is no skin rashes. There is no petechia or ecchymosis. NECK: Is supple there is JVD present. Carotids are equal there is no bruit there is no lymphadenopathy. There is no goiter. THERE is no accessory muscle respiration use. Trachea central. LUNGS: Shows bibasilar rales of CHF. There is no rhonchi or wheezing. HEART: S1-S2 is heard. There is an S3 gallop present there is no S4 gallop. There is systolic murmur of mitral regurgitation and tricuspid regurgitation present. There is no rub. ABDOMEN: Soft obese nontender there is no paraspinal megaly. Bowel sounds are well heard. EXTREMITIES: Femorals are deep. Femorals are diminished. Leg pulses are difficult to palpate. There is no cyanosis or clubbing. Capillary refill is normal. There is 2+ to 3 edema bilaterally with edema extending up to the scrotum. There is no DVT or cellulitis. There is no calf tenderness. ANUS: The patient is conscious awake alert oriented x3 with no focal deficits. PSYCHIATRIC: The patient judgment insight are intact his affect is normal. Labs- Entire Visit 03/23/20 03/23/20 03/23/20 12:32 12:32 12:32 WBC 10.3 RBC 5.51 Hgb 14.7 Hct 46.2 MCV 84 MCH 26.6 L MCHC 31.8 L RDW 15.2 H Plt Count 336 Lymph % (Auto) 13.3 [place] % (Auto) 7.3 Eos % (Auto) 0.3 Baso % (Auto) 0.5 Absolute Neuts (auto) 8.1 Absolute Lymphs (auto) 1.4 Absolute Monos (auto) 0.8 Absolute Eos (auto) 0.0 Absolute Basos (auto) 0.1 Seg Neutrophils % 78.6 H PT INR Sodium 132.7 L Potassium 4.4 Chloride 95 L Carbon Dioxide 27 Anion Gap 11 BUN 19 Creatinine 1.08 Est GFR ( Amer) > 60 Est GFR (MDRD) Non-Af > 60 Glucose 97 Hemoglobin A1c % Calcium 9.5 Phosphorus Magnesium Total Bilirubin 1.9 H Direct Bilirubin 0.5 H Neonat Total Bilirubin Not Reportable Neonat Direct Bilirubin Not Reportable Neonat Indirect Bili Not Reportable AST 58 ALT 49 Alkaline Phosphatase 84 Creatine Kinase 140 CK-MB (CK-2) 3.61 Troponin I 0.045 NT-Pro-B Natriuret Pep Total Protein 7.2 Albumin 4.2 Triglycerides Cholesterol LDL Cholesterol Direct VLDL Cholesterol HDL Cholesterol TSH Free T4 Free T3 pg/mL Urine Color Urine Appearance Urine pH Ur Specific [place] Urine Protein Urine Glucose (UA) Urine Ketones Urine Blood Urine Nitrite Urine Bilirubin Urine Urobilinogen Ur Leukocyte Esterase Urine WBC (Auto) Urine RBC (Auto) U Hyaline Cast (Auto) Squamous Epi Cells Auto Urine Mucus (Auto) Urine Creatinine Urine Total Protein Urine Ascorbic Acid Urine Opiates Screen Urine Methadone Screen Ur Barbiturates Screen Ur Phencyclidine Scrn Ur Amphetamines Screen U Benzodiazepines Scrn Urine Cocaine Screen U Marijuana (THC) Screen 03/23/20 03/23/20 03/23/20 12:32 12:32 12:41 WBC RBC Hgb Hct MCV MCH MCHC RDW Plt Count Lymph % (Auto) [place] % (Auto) Eos % (Auto) Baso % (Auto) Absolute Neuts (auto) Absolute Lymphs (auto) Absolute Monos (auto) Absolute Eos (auto) Absolute Basos (auto) Seg Neutrophils % PT 16.3 H INR 1.29 Sodium Potassium Chloride Carbon Dioxide Anion Gap BUN Creatinine Est GFR ( Amer) Est GFR (MDRD) Non-Af Glucose Hemoglobin A1c % Calcium Phosphorus Magnesium Total Bilirubin Direct Bilirubin Neonat Total Bilirubin Neonat Direct Bilirubin Neonat Indirect Bili AST ALT Alkaline Phosphatase Creatine Kinase CK-MB (CK-2) Troponin I NT-Pro-B Natriuret Pep 61486 H Total Protein Albumin Triglycerides Cholesterol LDL Cholesterol Direct VLDL Cholesterol HDL Cholesterol TSH Free T4 Free T3 pg/mL Urine Color DARK YELLOW Urine Appearance SLIGHTLY-CLOUDY Urine pH 5.0 Ur Specific [place] 1.017 Urine Protein 30 H Urine Glucose (UA) NEGATIVE Urine Ketones NEGATIVE Urine Blood SMALL H Urine Nitrite NEGATIVE Urine Bilirubin NEGATIVE Urine Urobilinogen 4.0 H Ur Leukocyte Esterase TRACE H Urine WBC (Auto) 3 Urine RBC (Auto) 1 U Hyaline Cast (Auto) 13 Squamous Epi Cells Auto <1 Urine Mucus (Auto) FEW Urine Creatinine Urine Total Protein Urine Ascorbic Acid NEGATIVE Urine Opiates Screen Urine Methadone Screen Ur Barbiturates Screen Ur Phencyclidine Scrn Ur Amphetamines Screen U Benzodiazepines Scrn Urine Cocaine Screen U Marijuana (THC) Screen 03/23/20 03/23/20 03/23/20 15:14 15:14 15:50 WBC RBC Hgb Hct MCV MCH MCHC RDW Plt Count Lymph % (Auto) [place] % (Auto) Eos % (Auto) Baso % (Auto) Absolute Neuts (auto) Absolute Lymphs (auto) Absolute Monos (auto) Absolute Eos (auto) Absolute Basos (auto) Seg Neutrophils % PT INR Sodium Potassium Chloride Carbon Dioxide Anion Gap BUN Creatinine Est GFR ( Amer) Est GFR (MDRD) Non-Af Glucose Hemoglobin A1c % Calcium Phosphorus Magnesium Total Bilirubin Direct Bilirubin Neonat Total Bilirubin Neonat Direct Bilirubin Neonat Indirect Bili AST ALT Alkaline Phosphatase Creatine Kinase CK-MB (CK-2) Troponin I 0.040 NT-Pro-B Natriuret Pep Total Protein Albumin Triglycerides Cholesterol LDL Cholesterol Direct VLDL Cholesterol HDL Cholesterol TSH Free T4 Free T3 pg/mL Urine Color Urine Appearance Urine pH Ur Specific [place] Urine Protein Urine Glucose (UA) Urine Ketones Urine Blood Urine Nitrite Urine Bilirubin Urine Urobilinogen Ur Leukocyte Esterase Urine WBC (Auto) Urine RBC (Auto) U Hyaline Cast (Auto) Squamous Epi Cells Auto Urine Mucus (Auto) Urine Creatinine 49.3 Urine Total Protein 15.0 H Urine Ascorbic Acid Urine Opiates Screen NEGATIVE Urine Methadone Screen NEGATIVE Ur Barbiturates Screen NEGATIVE Ur Phencyclidine Scrn NEGATIVE Ur Amphetamines Screen NEGATIVE U Benzodiazepines Scrn NEGATIVE Urine Cocaine Screen NEGATIVE U Marijuana (THC) Screen UNCONFIRMED POSITIVE 03/23/20 03/23/20 03/23/20 15:50 15:50 15:50 WBC RBC Hgb Hct MCV MCH MCHC RDW Plt Count Lymph % (Auto) [place] % (Auto) Eos % (Auto) Baso % (Auto) Absolute Neuts (auto) Absolute Lymphs (auto) Absolute Monos (auto) Absolute Eos (auto) Absolute Basos (auto) Seg Neutrophils % PT INR Sodium Potassium Chloride Carbon Dioxide Anion Gap BUN Creatinine Est GFR ( Amer) Est GFR (MDRD) Non-Af Glucose Hemoglobin A1c % 6.6 H Calcium Phosphorus Magnesium Total Bilirubin Direct Bilirubin Neonat Total Bilirubin Neonat Direct Bilirubin Neonat Indirect Bili AST ALT Alkaline Phosphatase Creatine Kinase CK-MB (CK-2) Troponin I NT-Pro-B Natriuret Pep Total Protein Albumin Triglycerides 88 Cholesterol 162.20 LDL Cholesterol Direct 130 H VLDL Cholesterol 18.0 HDL Cholesterol 23 L TSH 3.78 Free T4 2.11 Free T3 pg/mL 3.50 Urine Color Urine Appearance Urine pH Ur Specific [place] Urine Protein Urine Glucose (UA) Urine Ketones Urine Blood Urine Nitrite Urine Bilirubin Urine Urobilinogen Ur Leukocyte Esterase Urine WBC (Auto) Urine RBC (Auto) U Hyaline Cast (Auto) Squamous Epi Cells Auto Urine Mucus (Auto) Urine Creatinine Urine Total Protein Urine Ascorbic Acid Urine Opiates Screen Urine Methadone Screen Ur Barbiturates Screen Ur Phencyclidine Scrn Ur Amphetamines Screen U Benzodiazepines Scrn Urine Cocaine Screen U Marijuana (THC) Screen 03/24/20 03/24/20 05:15 05:15 WBC 7.7 RBC 5.14 Hgb 14.0 Hct 43.0 MCV 84 MCH 27.3 MCHC 32.6 RDW 15.0 H Plt Count 286 Lymph % (Auto) 16.3 [place] % (Auto) 8.4 Eos % (Auto) 1.1 Baso % (Auto) 0.7 Absolute Neuts (auto) 5.7 Absolute Lymphs (auto) 1.3 Absolute Monos (auto) 0.7 Absolute Eos (auto) 0.1 Absolute Basos (auto) 0.1 Seg Neutrophils % 73.5 PT INR Sodium 134.2 L Potassium 3.9 Chloride 97 L Carbon Dioxide 25 Anion Gap 12 BUN 21 H Creatinine 1.07 Est GFR ( Amer) > 60 Est GFR (MDRD) Non-Af > 60 Glucose 106 Hemoglobin A1c % Calcium 9.0 Phosphorus 4.4 Magnesium 1.9 Total Bilirubin Direct Bilirubin Neonat Total Bilirubin Neonat Direct Bilirubin Neonat Indirect Bili AST ALT Alkaline Phosphatase Creatine Kinase CK-MB (CK-2) Troponin I NT-Pro-B Natriuret Pep Total Protein Albumin Triglycerides Cholesterol LDL Cholesterol Direct VLDL Cholesterol HDL Cholesterol TSH Free T4 Free T3 pg/mL Urine Color Urine Appearance Urine pH Ur Specific [place] Urine Protein Urine Glucose (UA) Urine Ketones Urine Blood Urine Nitrite Urine Bilirubin Urine Urobilinogen Ur Leukocyte Esterase Urine WBC (Auto) Urine RBC (Auto) U Hyaline Cast (Auto) Squamous Epi Cells Auto Urine Mucus (Auto) Urine Creatinine Urine Total Protein Urine Ascorbic Acid Urine Opiates Screen Urine Methadone Screen Ur Barbiturates Screen Ur Phencyclidine Scrn Ur Amphetamines Screen U Benzodiazepines Scrn Urine Cocaine Screen U Marijuana (THC) Screen Chest X-Ray 03/23/20 00:00 IMPRESSION: CARDIOMEGALY. SCATTERED ATELECTASIS IN THE RIGHT LUNG WITH RIGHT PLEURAL EFFUSION. EKG:SINUS TACHYCARDIA [PLAA] . PROBABLE LEFT ATRIAL ABNORMALITY [NIVCD] . NONSPECIFIC INTRAVENTRICULAR CONDUCTION DELAY [AMI8] . CONSIDER ANTEROSEPTAL INFARCT ECHOCARDIOGRAM: Shows that the left ventricle is moderately dilated. There is severely reduced global hypokinesis with a severely reduced ejection fraction of 15 to 20%. There is at least moderate pulmonary hypertension. [Please see report] IMPRESSION//RECOMMENDATION: 1. 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 [Acute on chronic biventricular systolic and diastolic heart failure]. Continue diuretics. We will give the patient digoxin 0.25 mg IV push and start the patient on digoxin daily. Will hold off on beta-blockers at present. I discussed that Toprol-XL might have a lesser effect on his lungs compared to Coreg. But will start this once the patient's heart failure is better controlled. We will start the patient on a ARB we will start the patient on losartan 25 mg p.o. every 12 hours and increase as tolerated. 2. Dyspnea on exertion which is progressed to shortness of breath at rest secondary to biventricular failure 3. Leg edema secondary to pulmonary hypertension right heart failure. Heart failure is a combination of pulmonary hypertension and left heart failure. 4. Dilated cardiomyopathy with severely reduced LV ejection fraction. 5. PULMONARY HYPERTENSION: At least moderate pulmonary hypertension: Expect will this should improve with the treatment of the patient's heart failure. 6. Symptoms suggestive of obstructive sleep apnea: Patient as an outpatient would be recommended to have a sleep study done. 7. Nephrolithiasis: At present asymptomatic 8. History of enlarged prostate. Asymptomatic on Flomax. 9.. Elevated hemoglobin A1c:? Prediabetes. Would need further work-up. 10. 11 hyperlipidemia: The patient has low HDL and a high LDL levels. Recommend statins. 11. Later would recommend a stress test or a cardiac catheterization to assess presence or absence of coronary artery disease, and if present significance of the CAD lesions. Medications reviewed. Medications added. Medical regimen and management plan discussed with the attending provider on the case. Medical decision making is of high complexity. 60 minutes spent as patient more than 50% time spent direct patient care. Will follow
[2020-03-24] MEDS: DIGOXIN INJ 0.5 MG/2 ML AMPULE IV SCH (20:01)
[2020-03-24] MEDS: LOSARTAN POTASSIUM 25 MG TABLET PO SCH (22:26)
[2020-03-24] MEDS: SIMVASTATIN 10 MG TABLET PO SCH (22:27)
[2020-03-25] MEDS: FUROSEMIDE INJ/PF 40 MG/4 ML SDV IV SCH ×3 (06:08→21:49)
[2020-03-25 10:38] LABS: ANION GAP 7 (5-19); BLOOD UREA NITROGEN 18 mg/dL (7-20); CARBON DIOXIDE 36 mmol/L (22-30); CHLORIDE 94 mmol/L (98-107); GLUCOSE 96 mg/dL (75-110); PHOSPHORUS 3.7 mg/dL (2.5-4.5); POTASSIUM 3.7 mmol/L (3.6-5.0)
[2020-03-25] MEDS: DOCUSATE SODIUM 100 MG/10 ML UDC PO SCH (11:19)
[2020-03-25] MEDS: FAMOTIDINE 20 MG TABLET PO SCH ×2 (11:22→21:50)
[2020-03-25] MEDS: DIGOXIN INJ 0.5 MG/2 ML AMPULE IV SCH (11:22)
[2020-03-25] MEDS: LOSARTAN POTASSIUM 25 MG TABLET PO SCH ×2 (11:22→21:42)
[2020-03-25] MEDS: ENOXAPARIN SODIUM INJ 40 MG/0.4 ML DISP.SYRIN SUBCUT SCH (11:23)
[2020-03-25] MEDS: TAMSULOSIN HCL 0.4 MG CAP.SR.24H PO SCH (11:23)
[2020-03-25 12:36] LABS: CREATININE URINE 45.1 mg/dL (Not Estab.); MICROALBUMIN URINE 14.2 ug/mL (Not Estab.)
[2020-03-25] MEDS ORDERED: DIGOXIN INJ 0.5 MG/2 ML AMPULE IV ONE (13:45)
[2020-03-25] MEDS ORDERED: METOPROLOL TARTRATE 25 MG TABLET PO ONE (16:30)
--- NOTE | 2020-03-25 16:55 | Progress Note ---
Provider Note Provider Note: CARDIOLOGY PROGRESS NOTE by Dr. Munira Godwin on 03/25/2020. SUBJECTIVE: The patient states his shortness of breath is improved but is still short of breath with minimal activity. His leg edema is improved. He has no PND or orthopnea. There is no arrhythmias seen on the monitor. The patient was given a dose of metoprolol and he had no wheezing or shortness of breath. Hence we will start the patient on Toprol-XL 25 mg p.o. every 12 hours. Continue the patient's spironolactone, Lasix and losartan. We will increase the losartan as tolerated. He is still tachycardic with the monitor showing sinus tachycardia. Will continue patient's digoxin intravenously. Hopefully the metoprolol will help his heart rate to come down. PHYSICAL EXAMINATION: The patient is moderate to morbidly obese. In no acute distress. Selected Entries 03/25/20 11:35 Temperature 97.9 F Temperature Oral Source Pulse Rate 122 H Respiratory 22 H Rate Blood Pressure 128/82 H Blood Pressure 97 Mean BP Location Left Arm BP Position Sitting O2 Sat by Pulse 95 Oximetry Oxygen Delivery Room Air Method HEAD: Is atraumatic normocephalic. EYES: Pupils are equal round regular reactive to light accommodation. Extraocular movements are normal. There is no conjunctival pallor. There is no scleral icterus. EARS: Tympanic membranes are intact. External auditory canals are clear. NOSE: There is no deviated nasal septum. There is no inflammation of the nasal mucous membrane. MOUTH: Mucous membranes of mouth are moist. Tongue is moist. There is no ulcers. THROAT: There is no redness of the oropharynx. There is no exudates. SKIN: There is no skin rashes. There is no petechia or ecchymosis. NECK: Is supple there is JVD present. Carotids are equal there is no bruit there is no lymphadenopathy. There is no goiter. THERE is no accessory muscle respiration use. Trachea central. LUNGS: Shows bibasilar rales of CHF. There is no rhonchi or wheezing. HEART: S1-S2 is heard. There is an S3 gallop present there is no S4 gallop. There is systolic murmur of mitral regurgitation and tricuspid regurgitation present. There is no rub. ABDOMEN: Soft obese nontender there is no paraspinal megaly. Bowel sounds are well heard. EXTREMITIES: Femorals are deep. Femorals are diminished. Leg pulses are difficult to palpate. There is no cyanosis or clubbing. Capillary refill is normal. There is 2- edema bilaterally with edema extending up to the scrotum. The scrotal swelling also seems to have come down. There is no DVT or cellulitis. There is no calf tenderness. ANUS: The patient is conscious awake alert oriented x3 with no focal deficits. PSYCHIATRIC: The patient judgment insight are intact his affect is normal. Chest X-Ray 03/23/20 00:00 IMPRESSION: CARDIOMEGALY. SCATTERED ATELECTASIS IN THE RIGHT LUNG WITH RIGHT PLEURAL EFFUSION. Labs- All tests 24 hr 03/25/20 09:18 Sodium 137.1 Potassium 3.7 Chloride 94 L Carbon Dioxide 36 H Anion Gap 7 BUN 18 Creatinine 0.92 Est GFR ( Amer) > 60 Est GFR (MDRD) Non-Af > 60 Glucose 96 Calcium 9.0 Phosphorus 3.7 Magnesium 2.0 The patient's 24-hour intake is 1250 mL. His 24-hour total urinary output is 2240 mL. IMPRESSION//RECOMMENDATION: 1. 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 [Acute on chronic biventricular systolic and diastolic heart failure]. Continue diuretics. We will give the patient digoxin 0.25 mg IV push and start the patient on digoxin daily. Will hold off on beta-blockers at present. I discussed that Toprol-XL might have a lesser effect on his lungs compared to Coreg. But will start this once the patient's heart failure is better controlled. We will start the patient on a ARB we will start the patient on losartan 25 mg p.o. every 12 hours and increase as tolerated. 2. Dyspnea on exertion which is progressed to shortness of breath at rest secondary to biventricular failure 3. Leg edema secondary to pulmonary hypertension right heart failure. Heart failure is a combination of pulmonary hypertension and left heart failure. 4. Dilated cardiomyopathy with severely reduced LV ejection fraction. 5. PULMONARY HYPERTENSION: At least moderate pulmonary hypertension: Expect will this should improve with the treatment of the patient's heart failure. 6. Symptoms suggestive of obstructive sleep apnea: Patient as an outpatient would be recommended to have a sleep study done. 7. Nephrolithiasis: At present asymptomatic 8. History of enlarged prostate. Asymptomatic on Flomax. 9.. Elevated hemoglobin A1c:? Prediabetes. Would need further work-up. 10. 11 hyperlipidemia: The patient has low HDL and a high LDL levels. Recommend statins. 11. Later would recommend a stress test or a cardiac catheterization to assess presence or absence of coronary artery disease, and if present significance of the CAD lesions. Medications reviewed. New medications added. Medical regimen and management plan discussed with the attending provider on the case. Medical decision making is of high complexity. 60 minutes spent as patient more than 50% time spent direct patient care. Will follow
--- NOTE | 2020-03-25 18:48 | PDOC PROGRESS REPORT ---
Subjective Progress Note for:: 03/25/20 Subjective:: Patient became tachycardic last night. Was given some IV digoxin. Today he feels well. Still notes some palpitations occasionally. States that his breathing is continued to feel better. Reason For Visit: ANASARCA Physical Exam Vital Signs: Temp Pulse Resp BP Pulse Ox 98.9 F 125 H 23 H 108/65 93 03/25/20 16:42 03/25/20 16:42 03/25/20 16:42 03/25/20 16:42 03/25/20 16:42 Intake & Output 03/24/20 03/25/20 03/26/20 06:59 06:59 06:59 Intake Total 240 1250 586 Output Total 870 2240 4110 Balance -630 -840 -7459 Weight 129 kg 130 kg General appearance: PRESENT: no acute distress, cooperative Respiratory exam: PRESENT: symmetrical, unlabored. ABSENT: accessory muscle use, retraction, tachypnea, wheezes Cardiovascular exam: PRESENT: RRR, +S1, +S2. ABSENT: tachycardia GI/Abdominal exam: PRESENT: soft. ABSENT: rebound, rigid, tenderness Extremities exam: PRESENT: pedal edema, other - Lower extremity edema Neurological exam: PRESENT: alert, awake, oriented to person, oriented to place, oriented to time, oriented to situation Results Laboratory Results: 03/24/20 05:15 03/25/20 09:18 03/25/20 09:18 Sodium 137.1 Potassium 3.7 Chloride 94 L Carbon Dioxide 36 H Anion Gap 7 BUN 18 Creatinine 0.92 Est GFR ( Amer) > 60 Glucose 96 Calcium 9.0 Phosphorus 3.7 Magnesium 2.0 03/23/20 03/23/20 03/23/20 12:32 12:32 12:32 Creatine Kinase 140 CK-MB (CK-2) 3.61 Troponin I 0.045 NT-Pro-B Natriuret Pep 49190 H 03/23/20 15:50 Creatine Kinase CK-MB (CK-2) Troponin I 0.040 NT-Pro-B Natriuret Pep Impressions: Chest X-Ray 03/23/20 00:00 IMPRESSION: CARDIOMEGALY. SCATTERED ATELECTASIS IN THE RIGHT LUNG WITH RIGHT PLEURAL EFFUSION. Assessment and Plan - Diagnosis (1) Anasarca Is this a current diagnosis for this admission?: Yes Plan: Secondary to acute congestive heart failure. COURTNEY and obesity likely also contributing. Plan as below. (2) Acute on chronic congestive heart failure Qualifiers: Heart failure type: unspecified Qualified Code(s): I50.9 - Heart failure, unspecified Is this a current diagnosis for this admission?: Yes Plan: Diuresing with IV Lasix. Dr. Germain following. Echo done-awaiting reading but seems to be systolic heart failure. Started on losartan Beta-thais will be initiated Monitor on telemetry, strict I's and O's and fluid restriction (3) Tachycardia Is this a current diagnosis for this admission?: Yes Plan: Sinus tach. Likely secondary to CHF. Continue digoxin. Cardiology planning to start patient on beta-thais. Expect he should get better with fluid status optimization. (4) COURTNEY (obstructive sleep apnea) Is this a current diagnosis for this admission?: Yes Plan: History of morbid obesity and COURTNEY. Diet and lifestyle modification recommended. Outpatient nocturnal polysomnography. Nocturnal CPAP. (5) Pleural effusion, right Is this a current diagnosis for this admission?: Yes Plan: Secondary to CHF. Diurese. (6) Morbid obesity with BMI of 40.0-44.9, adult Is this a current diagnosis for this admission?: Yes Plan: BMI 42.8. We will obtain TSH, hemoglobin A1c and lipid panel. Diet and lifestyle modification recommended. - Time Time Spent with patient: 15-24 minutes Anticipated Discharge Disposition: Home, Self Care Anticipated Discharge Timeframe: within 72 hours
[2020-03-25] MEDS ORDERED: METOPROLOL SUCCINATE 25 MG TAB.SR.24H PO ONE (20:45)
[2020-03-25] MEDS: SIMVASTATIN 10 MG TABLET PO SCH (21:42)
[2020-03-25] MEDS ORDERED: METOPROLOL SUCCINATE 25 MG TAB.SR.24H PO SCH (22:00)
[2020-03-26] MEDS: FUROSEMIDE INJ/PF 40 MG/4 ML SDV IV SCH ×2 (05:33→17:17)
[2020-03-26 06:40] LABS: ANION GAP 11 (5-19); BLOOD UREA NITROGEN 16 mg/dL (7-20); CALCIUM 9.1 mg/dL (8.4-10.2); CARBON DIOXIDE 31 mmol/L (22-30); CHLORIDE 97 mmol/L (98-107); GLUCOSE 106 mg/dL (75-110); PHOSPHORUS 4.4 mg/dL (2.5-4.5); POTASSIUM 3.9 mmol/L (3.6-5.0)
[2020-03-26] MEDS ORDERED: DEXTROSE 50%-WATER 25 GM/50 ML DISP.SYRIN IV PRN ×2 (07:46)
[2020-03-26] MEDS ORDERED: GLUCAGON,HUMAN RECOMB 1 MG INJ IM PRN (07:46)
[2020-03-26] MEDS ORDERED: DEXTROSE 40% GEL 15 GM TUBE PO PRN ×2 (07:46)
[2020-03-26] MEDS: OXYCODONE-ACETAMINOPHEN 5-325 MG TABLET PO PRN (08:09)
[2020-03-26] MEDS: INSULIN LISPRO 100 UNIT/ML 3 ML VIAL SUBCUT SCH ×4 (08:52→21:29)
[2020-03-26] MEDS: DOCUSATE SODIUM 100 MG/10 ML UDC PO SCH (09:04)
[2020-03-26] MEDS: FAMOTIDINE 20 MG TABLET PO SCH ×2 (09:10→21:24)
[2020-03-26] MEDS: TAMSULOSIN HCL 0.4 MG CAP.SR.24H PO SCH (09:10)
[2020-03-26] MEDS: DIGOXIN INJ 0.5 MG/2 ML AMPULE IV SCH (09:11)
[2020-03-26] MEDS: ENOXAPARIN SODIUM INJ 40 MG/0.4 ML DISP.SYRIN SUBCUT SCH (09:11)
[2020-03-26] MEDS: METOPROLOL SUCCINATE 25 MG TAB.SR.24H PO SCH ×2 (09:11→21:25)
[2020-03-26] MEDS: LOSARTAN POTASSIUM 25 MG TABLET PO SCH ×2 (09:11→21:24)
--- NOTE | 2020-03-26 10:35 | Progress Note ---
Provider Note Provider Note: CARDIOLOGY PROGRESS NOTE by Dr. Munira Godwin on 03/26/2020. SUBJECTIVE:. The patient shows slight improvement. His leg edema is much better but he still has some chronic scrotal edema although this is gone down a little bit. He denies shortness of breath at rest. There is no PND orthopnea. There is no palpitations near syncope syncope. There is no arrhythmias seen on the monitor. The patient has good diuresis. He is tolerating metoprolol XL without any pulmonary problems. There is no TIA CVA symptoms. There is no dizziness near syncope or syncope. PHYSICAL EXAMINATION: The patient is moderate to morbidly obese. At present in no acute distress. Selected Entries 03/26/20 11:47 Temperature 97.6 F Temperature Oral Source Pulse Rate 116 H Respiratory 19 Rate Blood Pressure 115/81 Blood Pressure 92 Mean BP Location Left Arm BP Position Sitting O2 Sat by Pulse 93 Oximetry Oxygen Delivery Room Air Method HEAD: Is atraumatic normocephalic. EYES: Pupils are equal round regular reactive to light accommodation. Extraocular movements are normal. There is no conjunctival pallor. There is no scleral icterus. EARS: Tympanic membranes are intact. External auditory canals are clear. NOSE: There is no deviated nasal septum. There is no inflammation of the nasal mucous membrane. MOUTH: Mucous membranes of mouth are moist. Tongue is moist. There is no ulcers. THROAT: There is no redness of the oropharynx. There is no exudates. SKIN: There is no skin rashes. There is no petechia or ecchymosis. NECK: Is supple there is JVD present. Carotids are equal there is no bruit there is no lymphadenopathy. There is no goiter. THERE is no accessory muscle respiration use. Trachea central. LUNGS: Shows bibasilar rales of CHF. There is no rhonchi or wheezing. HEART: S1-S2 is heard. There is an S3 gallop present there is no S4 gallop. There is systolic murmur of mitral regurgitation and tricuspid regurgitation present. There is no rub. ABDOMEN: Soft obese nontender there is no paraspinal megaly. Bowel sounds are well heard. EXTREMITIES: Femorals are deep. Femorals are diminished. Leg pulses are difficult to palpate. There is no cyanosis or clubbing. Capillary refill is normal. There is 1+ edema bilaterally with edema extending up to the scrotum. The scrotal swelling also seems to have come down. Left lower extremity sleeve seems to be slightly bigge than the right. There is no DVT or cellulitis. There is no calf tenderness. ANUS: The patient is conscious awake alert oriented x3 with no focal deficits. PSYCHIATRIC: The patient judgment insight are intact his affect is normal. The patient's 24-hour intake is 1396 mL. His 24-hour total urinary output is 8967 mL. Chest X-Ray 03/23/20 00:00 IMPRESSION: CARDIOMEGALY. SCATTERED ATELECTASIS IN THE RIGHT LUNG WITH RIGHT PLEURAL EFFUSION. Labs- All tests 24 hr 03/26/20 03/26/20 05:59 11:49 Sodium 139.2 Potassium 3.9 Chloride 97 L Carbon Dioxide 31 H Anion Gap 11 BUN 16 Creatinine 0.91 Est GFR ( Amer) > 60 Est GFR (MDRD) Non-Af > 60 Glucose 106 POC Glucose 150 H Calcium 9.1 Phosphorus 4.4 Magnesium 2.2 IMPRESSION//RECOMMENDATION: 1. 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 [Acute on chronic biventricular systolic and diastolic heart failure]. This is improving but still has leg edema. Continue IV Lasix. Cardiovascular lateral. Note his metoprolol which is tolerating well has been increased to 50 mg XL preparation every 12 hours. He is also on losartan 50 mg p.o. every 12 hours. 2. Dyspnea on exertion which is progressed to shortness of breath at rest secondary to biventricular failure 3. Leg edema secondary to pulmonary hypertension right heart failure. Heart failure is a combination of pulmonary hypertension and left heart failure. Left greater than right slightly. Venous Doppler ordered. 4. Dilated cardiomyopathy with severely reduced LV ejection fraction. 5. PULMONARY HYPERTENSION: At least moderate pulmonary hypertension: Expect will this should improve with the treatment of the patient's heart failure. 6. Symptoms suggestive of obstructive sleep apnea: Patient as an outpatient would be recommended to have a sleep study done. 7. Nephrolithiasis: At present asymptomatic 8. History of enlarged prostate. Asymptomatic on Flomax. 9.. Elevated hemoglobin A1c:? Prediabetes. Would need further work-up. 10. 11 hyperlipidemia: The patient has low HDL and a high LDL levels. Recommend statins. 11. Later would recommend a stress test or a cardiac catheterization to assess presence or absence of coronary artery disease, and if present significance of the CAD lesions. Medications reviewed. New medications added. Medical regimen and management plan discussed with the attending provider on the case. Medical decision making is of high complexity. 60 minutes spent as patient more than 50% time spent direct patient care. Will follow
--- NOTE | 2020-03-26 13:30 | PDOC PROGRESS REPORT ---
Subjective Progress Note for:: 03/26/20 Subjective:: Patient diuresed significantly yesterday seems to output out almost 9 L. This morning on my encounter, he had already put out almost 2 L. He feels well besides some pain in his left lower extremity. Feels left lower extremity is more swollen than the right. Otherwise is feeling better. His swelling is improving. Reason For Visit: ANASARCA Physical Exam Vital Signs: Temp Pulse Resp BP Pulse Ox 97.6 F 116 H 19 115/81 93 03/26/20 11:47 03/26/20 11:47 03/26/20 11:47 03/26/20 11:47 03/26/20 11:47 Intake & Output 03/25/20 03/26/20 03/27/20 06:59 06:59 06:59 Intake Total 1250 1396 120 Output Total 2240 8967 1750 Balance -990 -2859 -1630 Weight 130 kg 125.5 kg General appearance: PRESENT: no acute distress, cooperative Neck exam: ABSENT: JVD Respiratory exam: PRESENT: symmetrical, unlabored. ABSENT: accessory muscle use, prolonged expiratory phas, retraction, tachypnea, wheezes Cardiovascular exam: PRESENT: +S1, +S2, tachycardia. ABSENT: irregular rhythm GI/Abdominal exam: PRESENT: soft. ABSENT: rebound, rigid, tenderness Extremities exam: PRESENT: +2 edema - Bilateral lower extremity but left lower extremity is bigger than the right Neurological exam: PRESENT: alert, awake, oriented to person, oriented to place, oriented to time Psychiatric exam: ABSENT: agitated, anxious Results Laboratory Results: 03/24/20 05:15 03/26/20 05:59 03/26/20 05:59 Sodium 139.2 Potassium 3.9 Chloride 97 L Carbon Dioxide 31 H Anion Gap 11 BUN 16 Creatinine 0.91 Est GFR ( Amer) > 60 Glucose 106 Calcium 9.1 Phosphorus 4.4 Magnesium 2.2 03/23/20 03/23/20 03/23/20 12:32 12:32 12:32 Creatine Kinase 140 CK-MB (CK-2) 3.61 Troponin I 0.045 NT-Pro-B Natriuret Pep 43602 H 03/23/20 15:50 Creatine Kinase CK-MB (CK-2) Troponin I 0.040 NT-Pro-B Natriuret Pep Impressions: Chest X-Ray 03/23/20 00:00 IMPRESSION: CARDIOMEGALY. SCATTERED ATELECTASIS IN THE RIGHT LUNG WITH RIGHT PLEURAL EFFUSION. Assessment and Plan - Diagnosis (1) Acute on chronic congestive heart failure Qualifiers: Heart failure type: systolic Qualified Code(s): I50.23 - Acute on chronic systolic (congestive) heart failure Is this a current diagnosis for this admission?: Yes Plan: Diuresing a little too well at current frequency. Would decrease frequency of IV Lasix to twice daily. Dr. Germain following. Recommendations appreciated. Echo done-awaiting final read but seems to be systolic heart failure based on preliminary assessment. Continue losartan Toprol-XL started yesterday. Still tachycardic today so we will increase dose to 50 every 12 hours. Monitor on telemetry, strict I's and O's and fluid restriction Cardiology recommending ischemic evaluation at some point later on via stress test. Check venous Dopplers given uneven leg swelling L>R (2) Anasarca Is this a current diagnosis for this admission?: Yes Plan: Secondary to acute congestive heart failure. COURTNEY and obesity likely also contributing. Plan as below. (3) Tachycardia Is this a current diagnosis for this admission?: Yes Plan: Sinus tach. Likely secondary to CHF. Continue digoxin and Toprol-XL. Expect he should get better with fluid status optimization. (4) COURTNEY (obstructive sleep apnea) Is this a current diagnosis for this admission?: Yes Plan: History of morbid obesity and COURTNEY. Diet and lifestyle modification recommended. Outpatient nocturnal polysomnography. Nocturnal CPAP. (5) Pleural effusion, right Is this a current diagnosis for this admission?: Yes Plan: Secondary to CHF. Diurese. (6) Elevated hemoglobin A1c Is this a current diagnosis for this admission?: Yes Plan: Hemoglobin A1c of 6.6 [one time reading]. Possibly could have type II diabetes but will have to monitor blood sugars before making conclusion. Accu-Cheks. At this point, dietary and lifestyle modification will likely suffice. I would hold off on initiating any anti-glycemic agents. Educator consulted. (7) Hyperlipidemia Qualifiers: Hyperlipidemia type: pure hypercholesterolemia Qualified Code(s): E78.00 - Pure hypercholesterolemia, unspecified; E78.0 - Pure hypercholesterolemia Is this a current diagnosis for this admission?: Yes Plan: atorvastatin 40 mg nightly (8) Morbid obesity with BMI of 40.0-44.9, adult Is this a current diagnosis for this admission?: Yes - Time Time Spent with patient: 15-24 minutes Anticipated Discharge Disposition: Home, Self Care Anticipated Discharge Timeframe: within 72 hours
[2020-03-26] MEDS ORDERED: METOPROLOL SUCCINATE 25 MG TAB.SR.24H PO ONE (14:00)
[2020-03-26] MEDS: METOPROLOL SUCCINATE 50 MG TAB.SR.24H PO SCH (21:25)
[2020-03-26] MEDS: ATORVASTATIN CALCIUM 40 MG TABLET PO SCH (21:25)
[2020-03-27 07:20] LABS: ANION GAP 6 (5-19); BLOOD UREA NITROGEN 17 mg/dL (7-20); CALCIUM 8.6 mg/dL (8.4-10.2); CARBON DIOXIDE 33 mmol/L (22-30); CHLORIDE 95 mmol/L (98-107); GLUCOSE 99 mg/dL (75-110); PHOSPHORUS 4.2 mg/dL (2.5-4.5); POTASSIUM 4.1 mmol/L (3.6-5.0)
[2020-03-27] MEDS ORDERED: ONDANSETRON HCL INJ/PF 4 MG/2 ML SDV IV PRN (08:30)
[2020-03-27] MEDS ORDERED: PROMETHAZINE HCL INJ 25 MG/1 ML VIAL IV PRN (08:30)
[2020-03-27] MEDS: INSULIN LISPRO 100 UNIT/ML 3 ML VIAL SUBCUT SCH ×4 (09:16→21:41)
[2020-03-27] MEDS: FAMOTIDINE 20 MG TABLET PO SCH ×2 (09:28→21:42)
[2020-03-27] MEDS: DOCUSATE SODIUM 100 MG CAPSULE PO SCH (09:28)
[2020-03-27] MEDS: DIGOXIN INJ 0.5 MG/2 ML AMPULE IV SCH (09:28)
[2020-03-27] MEDS: METOPROLOL SUCCINATE 50 MG TAB.SR.24H PO SCH ×2 (09:28→21:43)
[2020-03-27] MEDS: TAMSULOSIN HCL 0.4 MG CAP.SR.24H PO SCH (09:28)
[2020-03-27] MEDS: FUROSEMIDE INJ/PF 40 MG/4 ML SDV IV SCH ×2 (09:30→18:51)
[2020-03-27] MEDS: ENOXAPARIN SODIUM INJ 40 MG/0.4 ML DISP.SYRIN SUBCUT SCH (09:31)
--- NOTE | 2020-03-27 09:34 | RADIOLOGY REPORT (SQ) ---
EXAM DESCRIPTION: CHEST SINGLE VIEW IMAGES COMPLETED DATE/TIME: 03/27/2020 9:23 am REASON FOR STUDY: CHF COMPARISON: 03/23/2020 EXAM PARAMETERS: NUMBER OF VIEWS: One view. TECHNIQUE: Single frontal radiographic view of the chest acquired. RADIATION DOSE: NA LIMITATIONS: None. FINDINGS: LUNGS AND PLEURA: No opacities, masses or pneumothorax. No pleural effusion. MEDIASTINUM AND HILAR STRUCTURES: No masses. Contour normal. HEART AND VASCULAR STRUCTURES: Heart remains enlarged. No failure. BONES: No acute findings. HARDWARE: None in the chest. OTHER: No other significant finding. IMPRESSION: Cardiomegaly. No other significant findings in the chest. TECHNICAL DOCUMENTATION: JOB ID: [id number] 2010 [employer]- All Rights Reserved Reading location - IP/workstation name: [email or web address]
[2020-03-27] MEDS: LOSARTAN POTASSIUM 25 MG TABLET PO SCH ×2 (11:27→21:43)
--- NOTE | 2020-03-27 14:41 | RADIOLOGY REPORT (SQ) ---
EXAM DESCRIPTION: VENOUS BILATERAL LOWER IMAGES COMPLETED DATE/TIME: 03/27/2020 2:19 pm REASON FOR STUDY: Edema, redness to bilateral lower extremities COMPARISON: None. TECHNIQUE: Dynamic and static mead scale and color images acquired of both lower extremity venous sy stems. Selected spectral images acquired with additional compression and augmentation maneuvers. Imag es stored on PACS. LIMITATIONS: Limited evaluation due to edema. FINDINGS: RIGHT LEG COMMON FEMORAL AND FEMORAL: Normal phasicity, compression and augmentation. No visualized echogenic m aterial on mead scale. No defects on color images. POPLITEAL: Normal compression and augmentation. No visualized echogenic material on mead scale. No de fects on color images. CALF VESSELS: Normal compression and augmentation. No visualized echogenic material on mead scale. No defects on color image. GSV AND SSV: Normal compression. No visualized echogenic material on mead scale. No defects on color images. ANY DEEP VENOUS INSUFFICIENCY: Not evaluated. ANY EVIDENCE OF POPLITEAL CYST: No. OTHER: No other significant finding. LEFT LEG COMMON FEMORAL AND FEMORAL: Normal phasicity, compression and augmentation. No visualized echogenic m aterial on mead scale. No defects on color images. POPLITEAL: Normal compression and augmentation. No visualized echogenic material on mead scale. No de fects on color images. CALF VESSELS: Normal compression and augmentation. No visualized echogenic material on mead scale. No defects on color images. GSV AND SSV: Normal compression. No visualized echogenic material on mead scale. No defects on color images. ANY DEEP VENOUS INSUFFICIENCY: Not evaluated. ANY EVIDENCE POPLITEAL CYST: No. OTHER: No other significant finding. IMPRESSION: 1. Limited evaluation of the bilateral lower extremities due to edema. 2. NO EVIDENCE DVT OR SVT IN EITHER LEG. TECHNICAL DOCUMENTATION: JOB ID: [id number] 2010 [employer]- All Rights Reserved Reading location - IP/workstation name: [email or web address]
--- NOTE | 2020-03-27 14:43 | Progress Note ---
Provider Note Provider Note: CARDIOLOGY PROGRESS NOTE by Dr. Munira Godwin on . SUBJECTIVE: In spite of good diuresis the patient's leg edema is only slowly resolving. He also appears to be slightly short of breath. He states when he lies down he has cough which is dry this probably is a PND equal and since on examination the patient has a summation gallop [S3 gallop and an S4 gallop]. He denies any chest pain or discomfort. He has no orthopnea. There is no arrhythmias seen on the monitor. PHYSICAL EXAMINATION: The patient is moderately obese. At present in no acute distress although physical exam is shows that he still in left ventricle systolic heart failure. Selected Entries 03/27/20 16:12 Temperature 98.2 F Temperature Oral Source Pulse Rate 123 H Respiratory 19 Rate Blood Pressure 120/86 H Blood Pressure 97 Mean BP Location Left Arm BP Position Sitting O2 Sat by Pulse 97 Oximetry Oxygen Delivery Room Air Method HEAD: Is atraumatic normocephalic. EYES: Pupils are equal round regular reactive to light accommodation. Extraocular movements are normal. There is no conjunctival pallor. There is no scleral icterus. EARS: Tympanic membranes are intact. External auditory canals are clear. NOSE: There is no deviated nasal septum. There is no inflammation of the nasal mucous membrane. MOUTH: Mucous membranes of mouth are moist. Tongue is moist. There is no ulcers. THROAT: There is no redness of the oropharynx. There is no exudates. SKIN: There is no skin rashes. There is no petechia or ecchymosis. NECK: Is supple there is JVD present. Carotids are equal there is no bruit there is no lymphadenopathy. There is no goiter. THERE is no accessory muscle respiration use. Trachea central. LUNGS: Shows bibasilar rales of CHF. There is no rhonchi or wheezing. HEART: S1-S2 is heard. There is an S3 gallop present there is no S4 gallop. There is systolic murmur of mitral regurgitation and tricuspid regurgitation present. There is no rub. ABDOMEN: Soft obese nontender there is no paraspinal megaly. Bowel sounds are well heard. EXTREMITIES: Femorals are deep. Femorals are diminished. Leg pulses are difficult to palpate. There is no cyanosis or clubbing. Capillary refill is normal. There is 1+ edema bilaterally with edema extending up to the scrotum. The scrotal swelling also seems to have come down. Left lower extremity sleeve seems to be slightly bigge than the right. There is no DVT or cellulitis. There is no calf tenderness. ANUS: The patient is conscious awake alert oriented x3 with no focal deficits. PSYCHIATRIC: The patient judgment insight are intact his affect is normal. The patient's 24-hour intake is 780 mL. His 24-hour total urinary output is 3325 mL. Labs- All tests 24 hr 03/27/20 03/27/20 03/27/20 06:14 06:19 11:20 Sodium 134.3 L Potassium 4.1 Chloride 95 L Carbon Dioxide 33 H Anion Gap 6 BUN 17 Creatinine 0.79 Est GFR ( Amer) > 60 Est GFR (MDRD) Non-Af > 60 Glucose 99 POC Glucose 113 H 122 H Calcium 8.6 Phosphorus 4.2 Magnesium 2.3 03/27/20 03/27/20 16:14 21:21 Sodium Potassium Chloride Carbon Dioxide Anion Gap BUN Creatinine Est GFR ( Amer) Est GFR (MDRD) Non-Af Glucose POC Glucose 99 113 H Calcium Phosphorus Magnesium Chest X-Ray 03/23/20 00:00 IMPRESSION: CARDIOMEGALY. SCATTERED ATELECTASIS IN THE RIGHT LUNG WITH RIGHT PLEURAL EFFUSION. Venous Doppler Study 03/27/20 00:00 IMPRESSION: 1. Limited evaluation of the bilateral lower extremities due to edema. 2. NO EVIDENCE DVT OR SVT IN EITHER LEG. Chest X-Ray 03/27/20 06:00 IMPRESSION: Cardiomegaly. No other significant findings in the chest. IMPRESSION//RECOMMENDATION: 1. 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 [Acute on chronic biventricular systolic and diastolic heart failure]. Today's exam shows a summation gallop [S3 and S4 gallop]. We will give an extra dose of digoxin 0.125 mg IV push we will check a dig level in the morning. We will also give 20 mg of Lasix IV push. Note his metoprolol which is tolerating well has been increased to 50 mg XL preparation every 12 hours. He is also on losartan 50 mg p.o. every 12 hours. 2. Dyspnea on exertion which is progressed to shortness of breath at rest secondary to biventricular failure 3. Leg edema secondary to pulmonary hypertension right heart failure. Heart failure is a combination of pulmonary hypertension and left heart failure. Left greater than right slightly. Venous Doppler ordered. 4. Dilated cardiomyopathy with severely reduced LV ejection fraction. 5. PULMONARY HYPERTENSION: At least moderate pulmonary hypertension: Expect will this should improve with the treatment of the patient's heart failure. 6. Symptoms suggestive of obstructive sleep apnea: Patient as an outpatient would be recommended to have a sleep study done. 7. Nephrolithiasis: At present asymptomatic 8. History of enlarged prostate. Asymptomatic on Flomax. 9.. Elevated hemoglobin A1c:? Prediabetes. Would need further work-up. 10. 11 hyperlipidemia: The patient has low HDL and a high LDL levels. Recommend statins. 11. Sinus tachycardia: This is most likely secondary to ongoing failure. We will also there seems to be element of anxiety is suspected. Hence we will try later a small dose of anti-anxiolytic agent. 12. Later would recommend a stress test or a cardiac catheterization to assess presence or absence of coronary artery disease, and if present significance of the CAD lesions. 13. Cough seems to be suggestive of PND equal. 14. Obesity. Medications reviewed. Medical regimen and management plan discussed with attending provider on the case. Medical decision making is of high complexity. 40 minutes spent as patient more than 50% of time spent direct patient care. Will follow
[2020-03-27] MEDS ORDERED: DIGOXIN INJ 0.5 MG/2 ML AMPULE ONE (14:59)
[2020-03-27] MEDS ORDERED: FUROSEMIDE INJ/PF 20 MG/2 ML SDV ONE (14:59)
[2020-03-27] MEDS ORDERED: FUROSEMIDE INJ/PF 20 MG/2 ML SDV IV ONE (15:00)
[2020-03-27] MEDS ORDERED: DIGOXIN INJ 0.5 MG/2 ML AMPULE IV ONE (15:00)
--- NOTE | 2020-03-27 17:05 | PDOC PROGRESS REPORT ---
Subjective Progress Note for:: 03/27/20 Subjective:: Patient complaining of left lower extremity swelling and redness. He did have an ultrasound done today which reveals no evidence of DVT. The erythema and swelling likely secondary to his anasarca. He is diuresing pretty well. Echocardiogram result is still pending. Reason For Visit: ANASARCA Physical Exam Vital Signs: Temp Pulse Resp BP Pulse Ox 97.9 F 116 H 18 116/78 98 03/27/20 11:22 03/27/20 14:00 03/27/20 11:22 03/27/20 11:22 03/27/20 11:22 Intake & Output 03/26/20 03/27/20 03/28/20 06:59 06:59 06:59 Intake Total 1396 780 480 Output Total 8918 3326 225 Balance -6274 -8875 255 Weight 125.5 kg 127 kg General appearance: PRESENT: no acute distress, obese, well-developed, well- nourished Head exam: PRESENT: atraumatic, normocephalic Eye exam: PRESENT: conjunctiva pink, EOMI, PERRLA. ABSENT: scleral icterus Ear exam: PRESENT: normal external ear exam Mouth exam: PRESENT: moist, tongue midline Neck exam: ABSENT: carotid bruit, JVD, lymphadenopathy, thyromegaly Respiratory exam: PRESENT: clear to auscultation caty. ABSENT: rales, rhonchi, wheezes Cardiovascular exam: PRESENT: RRR, +S1, +S2. ABSENT: diastolic murmur, rubs, systolic murmur Pulses: PRESENT: normal dorsalis pedis pul Vascular exam: PRESENT: normal capillary refill GI/Abdominal exam: PRESENT: normal bowel sounds, soft, other - Anasarca. ABSENT: distended, guarding, mass, organolmegaly, rebound, tenderness Rectal exam: PRESENT: deferred Extremities exam: PRESENT: full ROM, other - 3+ edema. ABSENT: calf tenderness, clubbing, pedal edema Musculoskeletal exam: PRESENT: ambulatory, other - Erythema and swelling of the left greater than right lower extremity Neurological exam: PRESENT: alert, awake, oriented to person, oriented to place, oriented to time, oriented to situation, CN II-XII grossly intact. ABSENT: motor sensory deficit Psychiatric exam: PRESENT: appropriate affect, normal mood. ABSENT: homicidal ideation, suicidal ideation Skin exam: PRESENT: dry, warm. ABSENT: cyanosis, rash Results Laboratory Results: 03/24/20 05:15 03/27/20 06:19 03/27/20 06:19 Sodium 134.3 L Potassium 4.1 Chloride 95 L Carbon Dioxide 33 H Anion Gap 6 BUN 17 Creatinine 0.79 Est GFR ( Amer) > 60 Glucose 99 Calcium 8.6 Phosphorus 4.2 Magnesium 2.3 03/23/20 03/23/20 03/23/20 12:32 12:32 12:32 Creatine Kinase 140 CK-MB (CK-2) 3.61 Troponin I 0.045 NT-Pro-B Natriuret Pep 74017 H 03/23/20 15:50 Creatine Kinase CK-MB (CK-2) Troponin I 0.040 NT-Pro-B Natriuret Pep Impressions: Venous Doppler Study 03/27/20 00:00 IMPRESSION: 1. Limited evaluation of the bilateral lower extremities due to edema. 2. NO EVIDENCE DVT OR SVT IN EITHER LEG. Chest X-Ray 03/27/20 06:00 IMPRESSION: Cardiomegaly. No other significant findings in the chest. Assessment and Plan - Diagnosis (1) Acute on chronic congestive heart failure Qualifiers: Heart failure type: systolic Qualified Code(s): I50.23 - Acute on chronic systolic (congestive) heart failure Is this a current diagnosis for this admission?: Yes Plan: Diuresing appropriately. Toprol increased to 50 mg every 12 hours to better control his heart rate. Monitor on telemetry, strict I's and O's and fluid restriction Cardiology recommending ischemic evaluation at some point later on via stress test. (2) Anasarca Is this a current diagnosis for this admission?: Yes Plan: Secondary to acute congestive heart failure. COURTNEY and obesity likely also contributing. Follow-up with echocardiogram (3) Elevated hemoglobin A1c Is this a current diagnosis for this admission?: Yes Plan: Hemoglobin A1c of 6.6 [one time reading]. P Patient will benefit from weight loss for better glycemic control and overall wellbeing (4) Hyperlipidemia Qualifiers: Hyperlipidemia type: pure hypercholesterolemia Qualified Code(s): E78.00 - Pure hypercholesterolemia, unspecified; E78.0 - Pure hypercholesterolemia Is this a current diagnosis for this admission?: Yes Plan: Continue atorvastatin 40 mg nightly (5) Lower extremity edema Is this a current diagnosis for this admission?: Yes Plan: DVT ruled out (6) Morbid obesity with BMI of 40.0-44.9, adult Is this a current diagnosis for this admission?: Yes (7) Pleural effusion, right Is this a current diagnosis for this admission?: Yes (8) Tachycardia Is this a current diagnosis for this admission?: Yes - Time Anticipated Discharge Disposition: Home, Self Care Anticipated Discharge Timeframe: within 48 hours
[2020-03-27] MEDS: ATORVASTATIN CALCIUM 40 MG TABLET PO SCH (21:42)
[2020-03-27] MEDS ORDERED: ALPRAZOLAM 0.25 MG TABLET PO ONE (22:10)
[2020-03-28 05:55] LABS: ANION GAP 7 (5-19); BLOOD UREA NITROGEN 12 mg/dL (7-20); CALCIUM 9.3 mg/dL (8.4-10.2); CARBON DIOXIDE 35 mmol/L (22-30); CHLORIDE 96 mmol/L (98-107); DIGOXIN 0.83 ng/mL (0.8-2.0); GLUCOSE 104 mg/dL (75-110); PHOSPHORUS 4.3 mg/dL (2.5-4.5); POTASSIUM 4.7 mmol/L (3.6-5.0)
[2020-03-28] MEDS: INSULIN LISPRO 100 UNIT/ML 3 ML VIAL SUBCUT SCH ×4 (07:54→22:21)
[2020-03-28] MEDS ORDERED: LOSARTAN POTASSIUM 25 MG TABLET PO SCH (10:00)
[2020-03-28] MEDS: TAMSULOSIN HCL 0.4 MG CAP.SR.24H PO SCH (10:26)
[2020-03-28] MEDS: FAMOTIDINE 20 MG TABLET PO SCH ×2 (10:26→21:34)
[2020-03-28] MEDS: FUROSEMIDE INJ/PF 40 MG/4 ML SDV IV SCH ×2 (10:27→17:30)
[2020-03-28] MEDS: ENOXAPARIN SODIUM INJ 40 MG/0.4 ML DISP.SYRIN SUBCUT SCH (10:27)
[2020-03-28] MEDS: METOPROLOL SUCCINATE 50 MG TAB.SR.24H PO SCH ×2 (10:27→21:35)
[2020-03-28] MEDS: DOCUSATE SODIUM 100 MG CAPSULE PO SCH (10:28)
[2020-03-28] MEDS: DIGOXIN INJ 0.5 MG/2 ML AMPULE IV SCH (10:28)
--- NOTE | 2020-03-28 12:32 | PDOC PROGRESS REPORT ---
Subjective Progress Note for:: 03/28/20 Subjective:: Patient complaining of left lower extremity swelling and redness. He did have an ultrasound done today which reveals no evidence of DVT. The erythema and swelling likely secondary to his anasarca. He is diuresing pretty well. Echocardiogram result is still pending. Reason For Visit: ANASARCA Physical Exam Vital Signs: Temp Pulse Resp BP Pulse Ox 98.2 F 119 H 18 117/80 95 03/28/20 10:59 03/28/20 08:24 03/28/20 08:24 03/28/20 08:09 03/28/20 08:24 Intake & Output 03/27/20 03/28/20 03/29/20 06:59 06:59 06:59 Intake Total 780 705 240 Output Total 3325 9252 Balance -6534 -8103 240 Weight 127 kg 122.4 kg General appearance: PRESENT: no acute distress, well-developed, well-nourished Head exam: PRESENT: atraumatic, normocephalic Eye exam: PRESENT: conjunctiva pink, EOMI, PERRLA. ABSENT: scleral icterus Ear exam: PRESENT: normal external ear exam Mouth exam: PRESENT: moist, tongue midline Neck exam: ABSENT: carotid bruit, JVD, lymphadenopathy, thyromegaly Respiratory exam: PRESENT: clear to auscultation caty, unlabored. ABSENT: rales, rhonchi, wheezes Cardiovascular exam: PRESENT: +S1, +S2, tachycardia. ABSENT: diastolic murmur, rubs, systolic murmur Pulses: PRESENT: normal dorsalis pedis pul Vascular exam: PRESENT: normal capillary refill GI/Abdominal exam: PRESENT: normal bowel sounds, soft. ABSENT: distended, guarding, mass, organolmegaly, rebound, tenderness Rectal exam: PRESENT: deferred Extremities exam: PRESENT: full ROM, joint swelling - Left elbow swelling, more fluid-filled egg sized swelling with tenderness and mild erythema, other - 3 plus edema. ABSENT: calf tenderness, clubbing, pedal edema Neurological exam: PRESENT: alert, awake, oriented to person, oriented to place, oriented to time, oriented to situation, CN II-XII grossly intact. ABSENT: motor sensory deficit Psychiatric exam: PRESENT: appropriate affect, normal mood. ABSENT: homicidal ideation, suicidal ideation Skin exam: PRESENT: dry, erythema, warm. ABSENT: cyanosis, rash Results Laboratory Results: 03/24/20 05:15 03/28/20 05:11 03/28/20 05:11 Sodium 137.8 Potassium 4.7 Chloride 96 L Carbon Dioxide 35 H Anion Gap 7 BUN 12 Creatinine 0.81 Est GFR ( Amer) > 60 Glucose 104 Calcium 9.3 Phosphorus 4.3 Magnesium 2.4 H 03/23/20 03/23/20 03/23/20 12:32 12:32 12:32 Creatine Kinase 140 CK-MB (CK-2) 3.61 Troponin I 0.045 NT-Pro-B Natriuret Pep 69020 H 03/23/20 15:50 Creatine Kinase CK-MB (CK-2) Troponin I 0.040 NT-Pro-B Natriuret Pep Impressions: Venous Doppler Study 03/27/20 00:00 IMPRESSION: 1. Limited evaluation of the bilateral lower extremities due to edema. 2. NO EVIDENCE DVT OR SVT IN EITHER LEG. Chest X-Ray 03/27/20 06:00 IMPRESSION: Cardiomegaly. No other significant findings in the chest. Assessment and Plan - Diagnosis (1) Acute on chronic congestive heart failure Qualifiers: Heart failure type: systolic Qualified Code(s): I50.23 - Acute on chronic systolic (congestive) heart failure Is this a current diagnosis for this admission?: Yes Plan: Diuresing appropriately. Continue to increase medications for optimal control his heart rate. Monitor on telemetry, strict I's and O's and fluid restriction Cardiology recommending ischemic evaluation at some point later on via stress test. (2) Anasarca Is this a current diagnosis for this admission?: Yes Plan: Secondary to acute congestive heart failure. COURTNEY and obesity likely also contributing. Follow-up with echocardiogram which is still pending (3) Elevated hemoglobin A1c Is this a current diagnosis for this admission?: Yes Plan: Hemoglobin A1c of 6.6 [one time reading]. P Patient will benefit from weight loss for better glycemic control and overall wellbeing (4) Hyperlipidemia Qualifiers: Hyperlipidemia type: pure hypercholesterolemia Qualified Code(s): E78.00 - Pure hypercholesterolemia, unspecified; E78.0 - Pure hypercholesterolemia Is this a current diagnosis for this admission?: Yes (5) Lower extremity edema Is this a current diagnosis for this admission?: Yes Plan: DVT ruled out. It appears to be secondary to his gross edema and anasarca. We will continue with diuresis (6) Morbid obesity with BMI of 40.0-44.9, adult Is this a current diagnosis for this admission?: Yes Plan: BMI 42.8. We will obtain TSH, hemoglobin A1c and lipid panel. Diet and lifestyle modification recommended. (7) Pleural effusion, right Is this a current diagnosis for this admission?: Yes Plan: Secondary to CHF. Diurese. (8) Tachycardia Is this a current diagnosis for this admission?: Yes Plan: Sinus tach. Likely secondary to CHF. Continue to adjust digoxin and Toprol-XL. Expect he should get better with fluid status optimization. - Plan Summary Summary: Patient also has a left elbow swelling it is unclear if this is just secondary to fluids or possibly gout. Have contacted ultrasound and aspiration will be done - Time Time Spent with patient: 15-24 minutes Medications reviewed and adjusted accordingly: Yes Anticipated Discharge Disposition: Home, Self Care Anticipated Discharge Timeframe: within 72 hours - Inpatient Certification Based on my medical assessment, after consideration of the patient's comorbidities, presenting symptoms, or acuity I expect that the services needed warrant INPATIENT care.: Yes Medical Necessity: Risk of Complication if Not Cared For in Hospital
--- NOTE | 2020-03-28 14:14 | RADIOLOGY REPORT (SQ) ---
EXAM DESCRIPTION: U/S EXTREMITY NONVASCULAR LTD IMAGES COMPLETED DATE/TIME: 03/28/2020 1:37 pm REASON FOR STUDY: LT ELBOW CYST. SEND FLUID TO LAB FOR ANALYSIS COMPARISON: Venous Doppler from 03/27/2020. TECHNIQUE: Selected grayscale and color Doppler images of the left elbow were obtained. LIMITATIONS: None. FINDINGS: At the site of palpable abnormality in the left elbow there is a heterogeneous avascular s olid structure with internal cystic spaces that measures 3.7 x 2.1 x 1.8 cm. IMPRESSION: Heterogeneous avascular solid structure with internal cystic spaces at the site of palpa ble abnormality in the left elbow that measures 3.7 x 2.1 x 1.8 cm. Does the patient have a history of gout? TECHNICAL DOCUMENTATION: JOB ID: [id number] 2010 [employer]- All Rights Reserved Reading location - IP/workstation name: [email or web address]
[2020-03-28] MEDS ORDERED: DIGOXIN INJ 0.5 MG/2 ML AMPULE IV ONE (14:37)
--- NOTE | 2020-03-28 19:17 | Progress Note ---
Provider Note Provider Note: CARDIOLOGY PROGRESS NOTE by Dr. Praneeth Garcia on 03/28/2020. OBJECTIVE: The patient denies any chest pain. He still is tachycardic but his heart rate is in the 110s. His cough which seems to be PND equal and is also improved and is having less cough. There is no palpitations or near syncope or syncope. There is no arrhythmias seen on the monitor. On today's examination there is no summation gallop. His shortness of breath is improved vastly. His leg edema is also improved. He has good urine output. There is no fever. PHYSICAL EXAMINATION: The patient is morbidly obese. Selected Entries 03/28/20 03/28/20 15:51 17:34 Temperature 98.6 F Temperature Oral Source Pulse Rate 114 H Respiratory 18 Rate Blood Pressure 122/81 Blood Pressure 94 Mean BP Location Left Arm BP Position Sitting O2 Sat by Pulse 95 Oximetry Fraction of 21 Inspired Oxygen (FIO2) Oxygen Delivery Room Air Method HEAD: Is atraumatic normocephalic. EYES: Pupils are equal round regular reactive to light accommodation. Extraocular movements are normal. There is no conjunctival pallor. There is no scleral icterus. EARS: Tympanic membranes are intact. External auditory canals are clear. NOSE: There is no deviated nasal septum. There is no inflammation of the nasal mucous membrane. MOUTH: Mucous membranes of mouth are moist. Tongue is moist. There is no ulcers. THROAT: There is no redness of the oropharynx. There is no exudates. SKIN: There is no skin rashes. There is no petechia or ecchymosis. NECK: Is supple there is JVD present. Carotids are equal there is no bruit there is no lymphadenopathy. There is no goiter. THERE is no accessory muscle respiration use. Trachea central. LUNGS: Shows bibasilar rales of CHF. There is no rhonchi or wheezing. HEART: S1-S2 is heard. There is NO S3 gallop present, and there is no S4 g allop. There is no summation gallop today. There is systolic murmur of mitral regurgitation and tricuspid regurgitation present. There is no rub. ABDOMEN: Soft obese nontender there is no paraspinal megaly. Bowel sounds are well heard. EXTREMITIES: Femorals are deep. Femorals are diminished. Leg pulses are difficult to palpate. There is no cyanosis or clubbing. Capillary refill is normal. There is 1- edema bilaterally with edema extending up to the scrotum. The scrotal swelling also seems to have come down. Left lower extremity sleeve seems to be slightly bigge than the right. There is no DVT or cellulitis. There is no calf tenderness. ANUS: The patient is conscious awake alert oriented x3 with no focal deficits. PSYCHIATRIC: The patient judgment insight are intact his affect is normal. The patient's 24-hour intake is 705 mL. His 24-hour total urinary output is 7420 mL. Chest X-Ray 03/23/20 00:00 IMPRESSION: CARDIOMEGALY. SCATTERED ATELECTASIS IN THE RIGHT LUNG WITH RIGHT PLEURAL EFFUSION. Venous Doppler Study 03/27/20 00:00 IMPRESSION: 1. Limited evaluation of the bilateral lower extremities due to edema. 2. NO EVIDENCE DVT OR SVT IN EITHER LEG. Chest X-Ray 03/27/20 06:00 IMPRESSION: Cardiomegaly. No other significant findings in the chest. Extremity Ultrasound 03/28/20 00:00 IMPRESSION: Heterogeneous avascular solid structure with internal cystic spaces at the site of palpable abnormality in the left elbow that measures 3.7 x 2.1 x 1.8 cm. Does the patient have a history of gout? Labs- All tests 24 hr 03/27/20 03/28/20 03/28/20 21:21 05:11 05:11 Sodium 137.8 Potassium 4.7 Chloride 96 L Carbon Dioxide 35 H Anion Gap 7 BUN 12 Creatinine 0.81 Est GFR ( Amer) > 60 Est GFR (MDRD) Non-Af > 60 Glucose 104 POC Glucose 113 H Uric Acid 7.0 Calcium 9.3 Phosphorus 4.3 Magnesium 2.4 H Digoxin 0.83 03/28/20 03/28/20 03/28/20 06:24 10:53 15:53 Sodium Potassium Chloride Carbon Dioxide Anion Gap BUN Creatinine Est GFR ( Amer) Est GFR (MDRD) Non-Af Glucose POC Glucose 110 111 H 114 H Uric Acid Calcium Phosphorus Magnesium Digoxin IMPRESSION//RECOMMENDATION: 1. 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 [Acute on chronic biventricular systolic and diastolic heart failure]. Today's exam shows no summation gallop. Although his heart failure is improved he still is tachycardic. Hence we will increase the patient's Toprol-XL to 75 mg every 12 hours and increase the losartan to 50 daily 12. We will give an extra dose of digoxin 0.125 mg IV push. Hopefully this will help the patient's tachycardia. If tachycardia persists then would need to assess for possibility of the patient having myocarditis, which I do not he has. If tachycardia persists will discuss with [facility]ology 2. Dyspnea on exertion which is progressed to shortness of breath at rest secondary to biventricular failure 3. Leg edema secondary to pulmonary hypertension right heart failure. Heart failure is a combination of pulmonary hypertension and left heart failure. Left greater than right slightly. Venous Doppler ordered. 4. Dilated cardiomyopathy with severely reduced LV ejection fraction. 5. PULMONARY HYPERTENSION: At least moderate pulmonary hypertension: Expect will this should improve with the treatment of the patient's heart failure. 6. Symptoms suggestive of obstructive sleep apnea: Patient as an outpatient would be recommended to have a sleep study done. 7. Nephrolithiasis: At present asymptomatic 8. History of enlarged prostate. Asymptomatic on Flomax. 9.. Elevated hemoglobin A1c:? Prediabetes. Would need further work-up. 10. 11 hyperlipidemia: The patient has low HDL and a high LDL levels. Recommend statins. 11. Sinus tachycardia: This is most likely secondary to ongoing failure. We will also there seems to be element of anxiety is suspected. Hence we will try later a small dose of anti-anxiolytic agent. There is no change in the heart rate with the trial dose of anti-anxiolytic agent. Hence we will aggressively treat the patient's heart failure. 12. Later would recommend a stress test or a cardiac catheterization to assess presence or absence of coronary artery disease, and if present significance of the CAD lesions. 13. Cough seems to be suggestive of PND equal. This is improved with the current treatment. 14. Obesity. Medications reviewed. Medical regimen and management plan discussed with attending provider on the case. Medical decision making is of high complexity. 40 minutes spent as patient more than 50% of time spent direct patient care. Will follow
[2020-03-28] MEDS: ATORVASTATIN CALCIUM 40 MG TABLET PO SCH (21:34)
[2020-03-28] MEDS: LOSARTAN POTASSIUM 50 MG TABLET PO SCH (21:34)
[2020-03-29] MEDS: INSULIN LISPRO 100 UNIT/ML 3 ML VIAL SUBCUT SCH ×4 (08:22→21:23)
[2020-03-29] MEDS: DOCUSATE SODIUM 100 MG CAPSULE PO SCH (09:22)
[2020-03-29] MEDS: METOPROLOL SUCCINATE 50 MG TAB.SR.24H PO SCH ×2 (09:33→21:24)
[2020-03-29] MEDS: ENOXAPARIN SODIUM INJ 40 MG/0.4 ML DISP.SYRIN SUBCUT SCH (09:35)
[2020-03-29] MEDS: FUROSEMIDE INJ/PF 40 MG/4 ML SDV IV SCH ×2 (09:35→18:09)
[2020-03-29] MEDS: TAMSULOSIN HCL 0.4 MG CAP.SR.24H PO SCH (09:36)
[2020-03-29] MEDS: LOSARTAN POTASSIUM 50 MG TABLET PO SCH ×2 (09:36→21:23)
[2020-03-29] MEDS: DIGOXIN INJ 0.5 MG/2 ML AMPULE IV SCH (09:36)
[2020-03-29] MEDS: FAMOTIDINE 20 MG TABLET PO SCH ×2 (09:37→21:24)
[2020-03-29] MEDS ORDERED: DIGOXIN INJ 0.5 MG/2 ML AMPULE IV ONE (10:16)
--- NOTE | 2020-03-29 10:16 | Progress Note ---
Provider Note Provider Note: Cardiology PROGRESS NOTE by Dr. Munira Godwin on 03/29/2020. SUBJECTIVE: The patient's heart rate is slightly better but still not optimally controlled. He has no shortness breath at rest there is no PND orthopnea. There is no cough which is thought to be PND current is not there anymore. He denies any chest pain discomfort. There is no atrioventricular arrhythmias seen on the monitor. He does have some pain and swelling in the left lower extremity and is being treated for coexistent cellulitis. His edema is much improved. His urine output is still good and his kidney function is normal. PHYSICAL EXAMINATION: The patient is moderately obese. In no acute distress. Selected Entries 03/29/20 11:31 Temperature 97.9 F Temperature Oral Source Pulse Rate 106 H Respiratory 19 Rate Blood Pressure 119/77 Blood Pressure 91 Mean BP Location Left Arm BP Position Sitting O2 Sat by Pulse 96 Oximetry Oxygen Delivery Room Air Method HEAD: Is atraumatic normocephalic. EYES: Pupils are equal round regular reactive to light accommodation. Extraocular movements are normal. There is no conjunctival pallor. There is no scleral icterus. EARS: Tympanic membranes are intact. External auditory canals are clear. NOSE: There is no deviated nasal septum. There is no inflammation of the nasal mucous membrane. MOUTH: Mucous membranes of mouth are moist. Tongue is moist. There is no ulcers. THROAT: There is no redness of the oropharynx. There is no exudates. SKIN: There is no skin rashes. There is no petechia or ecchymosis. NECK: Is supple there is JVD present. Carotids are equal there is no bruit there is no lymphadenopathy. There is no goiter. THERE is no accessory muscle respiration use. Trachea central. LUNGS: Shows bibasilar rales of CHF. There is no rhonchi or wheezing. HEART: S1-S2 is heard. There is NO S3 gallop present, and there is no S4 gallop. There is no summation gallop today. There is systolic murmur of mitral regurgitation and tricuspid regurgitation present. There is no rub. ABDOMEN: Soft obese nontender there is no paraspinal megaly. Bowel sounds are well heard. EXTREMITIES: Femorals are deep. Femorals are diminished. Leg pulses are difficult to palpate. There is no cyanosis or clubbing. Capillary refill is normal. There is mild edema bilaterally with edema extending up to the scrotum. The scrotal swelling also seems to have come down. Left lower extremity seems to be slightly bigger than the right. There is some redness in the lower part of the left leg and his left foot.? Cellulitis. There is no DVT . There is no calf tenderness. ANUS: The patient is conscious awake alert oriented x3 with no focal deficits. PSYCHIATRIC: The patient judgment insight are intact his affect is normal. The patient's 24-hour intake is 1010 mL. His 24-hour total urinary output is 4250 mL. Labs- All tests 24 hr 03/28/20 03/29/20 03/29/20 21:42 04:57 04:57 POC Glucose 100 Uric Acid 6.5 Digoxin 0.93 03/29/20 03/29/20 03/29/20 06:14 11:29 17:02 POC Glucose 120 H 107 111 H Uric Acid Digoxin Chest X-Ray 03/23/20 00:00 IMPRESSION: CARDIOMEGALY. SCATTERED ATELECTASIS IN THE RIGHT LUNG WITH RIGHT PLEURAL EFFUSION. Venous Doppler Study 03/27/20 00:00 IMPRESSION: 1. Limited evaluation of the bilateral lower extremities due to edema. 2. NO EVIDENCE DVT OR SVT IN EITHER LEG. Chest X-Ray 03/27/20 06:00 IMPRESSION: Cardiomegaly. No other significant findings in the chest. Extremity Ultrasound 03/28/20 00:00 IMPRESSION: Heterogeneous avascular solid structure with internal cystic spaces at the site of palpable abnormality in the left elbow that measures 3.7 x 2.1 x 1.8 cm. Does the patient have a history of gout? IMPRESSION//RECOMMENDATION: 1. 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 [Acute on chronic biventricular systolic and diastolic heart failure]. Today's exam shows no summation gallop. His heart rate is much improved but not optimally controlled. Continue Toprol-XL at 75 mg p.o. every 12 hours and losartan 50 mg p.o. every 12 hours. Continue present IV Lasix. The patient is level is still subtherapeutic. Hence we will give IV digoxin 0.125 mg extra dose IV today. 2. Dyspnea on exertion which is progressed to shortness of breath at rest secondary to biventricular failure 3. Leg edema secondary to pulmonary hypertension right heart failure. Heart failure is a combination of pulmonary hypertension and left heart failure. Left greater than right slightly. Venous Doppler ordered. 4. Dilated cardiomyopathy with severely reduced LV ejection fraction. 5. PULMONARY HYPERTENSION: At least moderate pulmonary hypertension: Expect will this should improve with the treatment of the patient's heart failure. 6. Symptoms suggestive of obstructive sleep apnea: Patient as an outpatient wou ld be recommended to have a sleep study done. 7. Nephrolithiasis: At present asymptomatic 8. History of enlarged prostate. Asymptomatic on Flomax. 9.. Elevated hemoglobin A1c:? Prediabetes. Would need further work-up. 10. 11 hyperlipidemia: The patient has low HDL and a high LDL levels. Recommend statins. 11. Sinus tachycardia: This is most likely secondary to ongoing failure. We will also there seems to be element of anxiety is suspected. Hence we will try later a small dose of anti-anxiolytic agent. There is no change in the heart rate with the trial dose of anti-anxiolytic agent. Hence we will aggressively treat the patient's heart failure. 12. Later would recommend a stress test or a cardiac catheterization to assess presence or absence of coronary artery disease, and if present significance of the CAD lesions. 13. Cough seems to be suggestive of PND equal. This is resolved with current treatment. 14. Possible cellulitis of left lower extremity. Patient is on Keflex 15. The patient most likely has a lipoma in the back of his left elbow. 16. Obesity. Medications reviewed. Medical regimen and management plan discussed with attending provider on the case. Medical decision making is of high complexity. 40 minutes spent as patient more than 50% of time spent direct patient care. Will follow
--- NOTE | 2020-03-29 17:50 | PDOC PROGRESS REPORT ---
Subjective Progress Note for:: 03/29/20 Subjective:: Patient feels better today. His breathing is better. He feels the swelling is improved. His tachycardic but appears to be better controlled. He also continues to note swelling and erythema of the left lower extremity as well as his left elbow although both are improved. Reason For Visit: ANASARCA Physical Exam Vital Signs: Temp Pulse Resp BP Pulse Ox 97.9 F 111 H 19 119/77 96 03/29/20 11:31 03/29/20 14:00 03/29/20 11:31 03/29/20 11:31 03/29/20 11:31 Intake & Output 03/28/20 03/29/20 03/30/20 06:59 06:59 06:59 Intake Total 705 1010 465 Output Total 7480 4250 1600 Balance -6715 -3240 -1135 Weight 122.4 kg 120 kg General appearance: PRESENT: no acute distress, well-developed, well-nourished Head exam: PRESENT: atraumatic, normocephalic Eye exam: PRESENT: conjunctiva pink, EOMI, PERRLA. ABSENT: scleral icterus Ear exam: PRESENT: normal external ear exam Mouth exam: PRESENT: moist, tongue midline Neck exam: ABSENT: carotid bruit, JVD, lymphadenopathy, thyromegaly Respiratory exam: PRESENT: clear to auscultation caty, unlabored. ABSENT: rales, rhonchi, wheezes Cardiovascular exam: PRESENT: +S1, +S2, tachycardia. ABSENT: diastolic murmur, rubs, systolic murmur Pulses: PRESENT: normal dorsalis pedis pul Vascular exam: PRESENT: normal capillary refill GI/Abdominal exam: PRESENT: normal bowel sounds, soft. ABSENT: distended, guarding, mass, organolmegaly, rebound, tenderness Rectal exam: PRESENT: deferred Extremities exam: PRESENT: full ROM, tenderness - L elbow with erythema and ten derness, other - anasarca L>RLE edema L elbow swelling and erythema. ABSENT: calf tenderness, clubbing, pedal edema Neurological exam: PRESENT: alert, awake, oriented to person, oriented to place, oriented to time, oriented to situation, CN II-XII grossly intact. ABSENT: m otor sensory deficit Psychiatric exam: PRESENT: appropriate affect, normal mood. ABSENT: homicidal ideation, suicidal ideation Skin exam: PRESENT: dry, intact, warm. ABSENT: cyanosis, rash Results Laboratory Results: 03/24/20 05:15 03/28/20 05:11 03/29/20 04:57 Uric Acid 6.5 03/23/20 03/23/20 03/23/20 12:32 12:32 12:32 Creatine Kinase 140 CK-MB (CK-2) 3.61 Troponin I 0.045 NT-Pro-B Natriuret Pep 79205 H 03/23/20 15:50 Creatine Kinase CK-MB (CK-2) Troponin I 0.040 NT-Pro-B Natriuret Pep Impressions: Venous Doppler Study 03/27/20 00:00 IMPRESSION: 1. Limited evaluation of the bilateral lower extremities due to edema. 2. NO EVIDENCE DVT OR SVT IN EITHER LEG. Chest X-Ray 03/27/20 06:00 IMPRESSION: Cardiomegaly. No other significant findings in the chest. Extremity Ultrasound 03/28/20 00:00 IMPRESSION: Heterogeneous avascular solid structure with internal cystic spaces at the site of palpable abnormality in the left elbow that measures 3.7 x 2.1 x 1.8 cm. Does the patient have a history of gout? Assessment and Plan - Diagnosis (1) Acute on chronic congestive heart failure Qualifiers: Heart failure type: systolic Qualified Code(s): I50.23 - Acute on chronic systolic (congestive) heart failure Is this a current diagnosis for this admission?: Yes Plan: Diuresing appropriately. Continue to increase medications for optimal control his heart rate. Monitor on telemetry, strict I's and O's and fluid restriction Cardiology recommending ischemic evaluation as outpatient for his severe cardiomyopathy (2) Anasarca Is this a current diagnosis for this admission?: Yes Plan: Secondary to acute congestive heart failure. COURTNEY and obesity likely also contributing. Follow-up with echocardiogram official report (3) Elevated hemoglobin A1c Is this a current diagnosis for this admission?: Yes Plan: Hemoglobin A1c of 6.6 [one time reading]. P Patient will benefit from weight loss for better glycemic control and overall wellbeing (4) Hyperlipidemia Qualifiers: Hyperlipidemia type: pure hypercholesterolemia Qualified Code(s): E78.00 - Pure hypercholesterolemia, unspecified; E78.0 - Pure hypercholesterolemia Is this a current diagnosis for this admission?: Yes Plan: Continue atorvastatin 40 mg nightly (5) Lower extremity edema Is this a current diagnosis for this admission?: Yes Plan: DVT ruled out. It appears to be secondary to his gross edema and anasarca. We will continue with diuresis There may be a superimposed infection due to the erythema. Will start on keflex (6) Morbid obesity with BMI of 40.0-44.9, adult Is this a current diagnosis for this admission?: Yes (7) Pleural effusion, right Is this a current diagnosis for this admission?: Yes Plan: Secondary to CHF. Diurese. (8) Tachycardia Is this a current diagnosis for this admission?: Yes Plan: Sinus tach. Likely secondary to CHF. Continue to adjust digoxin and Toprol-XL. He received extra doses of Digoxin today Expect he should get better with fluid status optimization. - Plan Summary Summary: Patient also has a left elbow swelling it is unclear if this is just secondary to fluids or possibly gout. Uric acid level is within normal this may possibly be a lipoma however this is came about suddenly and it is pretty tender so it is unclear to me if this is a lipoma - Time Time Spent with patient: 15-24 minutes Medications reviewed and adjusted accordingly: Yes Anticipated Discharge Disposition: Home, Self Care Anticipated Discharge Timeframe: within 72 hours - Inpatient Certification Based on my medical assessment, after consideration of the patient's comorbi dities, presenting symptoms, or acuity I expect that the services needed warrant INPATIENT care.: Yes Medical Necessity: Need For Continuous Telemetry Monitoring
[2020-03-29] MEDS: CEPHALEXIN 500 MG CAPSULE PO SCH (18:09)
[2020-03-29] MEDS: ATORVASTATIN CALCIUM 40 MG TABLET PO SCH (21:24)
[2020-03-30] MEDS: CEPHALEXIN 500 MG CAPSULE PO SCH ×5 (00:10→23:40)
[2020-03-30 05:30] LABS: ABSOLUTE BASOPHILS # (AUTO) 0.1 10^3/uL (0.0-0.2); ABSOLUTE EOSINOPHILS # (AUTO) 0.2 10^3/uL (0.0-0.6); ABSOLUTE LYMPHOCYTES (AUTO) 1.1 10^3/uL (0.5-4.7); ABSOLUTE MONOCYTES (AUTO) 0.9 10^3/uL (0.1-1.4); ABSOLUTE NEUT (AUTO) 5.8 10^3/uL (1.7-8.2); BASOPHILS % (AUTO) 0.7 % (0-2); EOSINOPHILS % (AUTO) 2.5 % (0-6); HEMOGLOBIN 14.2 g/dL (13.5-17.0); LYMPHOCYTES % (AUTO) 13.9 % (13-45); MEAN CORPUSCULAR HEMOGLOBIN 26.7 pg (27.0-33.4); MEAN CORPUSCULAR HGB CONC 32.3 g/dL (32.0-36.0); MEAN CORPUSCULAR VOLUME 83 fl (80-97); MONOCYTES % (AUTO) 11.1 % (3-13); PLATELET COUNT 228 10^3/uL (150-450); RED BLOOD COUNT 5.32 10^6/uL (4.35-5.55); RED CELL DISTRIBUTION WIDTH 15.1 % (11.5-14.0); SEGMENTED NEUTROPHILS % (AUTO) 71.8 % (42-78); TOTAL CELLS COUNTED % (AUTO) 100 %; WHITE BLOOD COUNT 8.1 10^3/uL (4.0-10.5)
[2020-03-30 05:52] LABS: ANION GAP 7 (5-19); BLOOD UREA NITROGEN 16 mg/dL (7-20); CALCIUM 8.8 mg/dL (8.4-10.2); CARBON DIOXIDE 30 mmol/L (22-30); CHLORIDE 102 mmol/L (98-107); GLUCOSE 98 mg/dL (75-110); POTASSIUM 4.3 mmol/L (3.6-5.0)
[2020-03-30] MEDS: INSULIN LISPRO 100 UNIT/ML 3 ML VIAL SUBCUT SCH ×4 (08:53→21:05)
[2020-03-30] MEDS: LOSARTAN POTASSIUM 50 MG TABLET PO SCH ×2 (10:05→21:10)
[2020-03-30] MEDS: TAMSULOSIN HCL 0.4 MG CAP.SR.24H PO SCH (10:05)
[2020-03-30] MEDS: FAMOTIDINE 20 MG TABLET PO SCH ×2 (10:05→21:10)
[2020-03-30] MEDS: DOCUSATE SODIUM 100 MG CAPSULE PO SCH (10:05)
[2020-03-30] MEDS: METOPROLOL SUCCINATE 50 MG TAB.SR.24H PO SCH ×2 (10:06→21:10)
[2020-03-30] MEDS: DIGOXIN INJ 0.5 MG/2 ML AMPULE IV SCH (10:06)
[2020-03-30] MEDS: FUROSEMIDE INJ/PF 40 MG/4 ML SDV IV SCH ×2 (10:06→17:49)
[2020-03-30] MEDS: ENOXAPARIN SODIUM INJ 40 MG/0.4 ML DISP.SYRIN SUBCUT SCH (10:06)
--- NOTE | 2020-03-30 14:34 | Progress Note ---
Provider Note Provider Note: CARDIOLOGY PROGRESS NOTE by Dr. Munira Godwin on 03/30/2020. OBJECTIVE: The patient denies any chest pain or discomfort. There is no shortness of breath today. There is no PND orthopnea or cough or PND. He is ambulated in his room without any problems. There is no arrhythmias seen on the monitor. The patient continues to be tachycardic but his heart rate is like in the low 1 teens. His Toprol-XL has been increased to 100 twice daily continue digoxin and continue losartan. PHYSICAL EXAMINATION: The patient mild to moderately obese. In no acute distress. Selected Entries 03/29/20 17:06 Temperature 97.3 F Temperature Oral Source Pulse Rate 112 H Respiratory 18 Rate Blood Pressure 117/85 Blood Pressure 95 Mean BP Location Left Arm BP Position Sitting O2 Sat by Pulse 96 Oximetry Oxygen Delivery Room Air Method HEAD: Is atraumatic normocephalic. EYES: Pupils are equal round regular reactive to light accommodation. Extraocular movements are normal. There is no conjunctival pallor. There is no scleral icterus. EARS: Tympanic membranes are intact. External auditory canals are clear. NOSE: There is no deviated nasal septum. There is no inflammation of the nasal mucous membrane. MOUTH: Mucous membranes of mouth are moist. Tongue is moist. There is no ulcers. THROAT: There is no redness of the oropharynx. There is no exudates. SKIN: There is no skin rashes. There is no petechia or ecchymosis. NECK: Is supple there is JVD present. Carotids are equal there is no bruit there is no lymphadenopathy. There is no goiter. THERE is no accessory muscle respiration use. Trachea central. LUNGS: Shows bibasilar rales of CHF. There is no rhonchi or wheezing. HEART: S1-S2 is heard. There is NO S3 gallop present, and there is no S4 gallop. There is no summation gallop today. There is systolic murmur of mitral regurgitation and tricuspid regurgitation present. There is no rub. ABDOMEN: Soft obese nontender there is no hepatosplenomegaly. Bowel sounds are well heard. EXTREMITIES: Femorals are deep. Femorals are diminished. Leg pulses are difficult to palpate. There is no cyanosis or clubbing. Capillary refill is normal. There is mild edema bilaterally . The scrotal swelling also seems to have come down. Left lower extremity seems to be slightly bigger than the right. There is some redness in the lower part of the left leg and his left foot.? Cellulitis. There is no DVT . There is no calf tenderness. ANUS: The patient is conscious awake alert oriented x3 with no focal deficits. PSYCHIATRIC: The patient judgment insight are intact his affect is normal. The patient's 24-hour intake is 1020 mL. His 24-hour total urinary output is 3050 mL. Labs- All tests 24 hr 03/30/20 03/30/20 03/30/20 05:07 05:07 06:38 WBC 8.1 RBC 5.32 Hgb 14.2 Hct 44.0 MCV 83 MCH 26.7 L MCHC 32.3 RDW 15.1 H Plt Count 228 Lymph % (Auto) 13.9 [place] % (Auto) 11.1 Eos % (Auto) 2.5 Baso % (Auto) 0.7 Absolute Neuts (auto) 5.8 Absolute Lymphs (auto) 1.1 Absolute Monos (auto) 0.9 Absolute Eos (auto) 0.2 Absolute Basos (auto) 0.1 Seg Neutrophils % 71.8 Sodium 139.4 Potassium 4.3 Chloride 102 Carbon Dioxide 30 Anion Gap 7 BUN 16 Creatinine 0.73 Est GFR ( Amer) > 60 Est GFR (MDRD) Non-Af > 60 Glucose 98 POC Glucose 101 Calcium 8.8 03/30/20 03/30/20 03/30/20 11:20 16:01 21:04 WBC RBC Hgb Hct MCV MCH MCHC RDW Plt Count Lymph % (Auto) [place] % (Auto) Eos % (Auto) Baso % (Auto) Absolute Neuts (auto) Absolute Lymphs (auto) Absolute Monos (auto) Absolute Eos (auto) Absolute Basos (auto) Seg Neutrophils % Sodium Potassium Chloride Carbon Dioxide Anion Gap BUN Creatinine Est GFR ( Amer) Est GFR (MDRD) Non-Af Glucose POC Glucose 160 H 109 135 H Calcium Chest X-Ray 03/23/20 00:00 IMPRESSION: CARDIOMEGALY. SCATTERED ATELECTASIS IN THE RIGHT LUNG WITH RIGHT PLEURAL EFFUSION. Venous Doppler Study 03/27/20 00:00 IMPRESSION: 1. Limited evaluation of the bilateral lower extremities due to edema. 2. NO EVIDENCE DVT OR SVT IN EITHER LEG. Chest X-Ray 03/27/20 06:00 IMPRESSION: Cardiomegaly. No other significant findings in the chest. Extremity Ultrasound 03/28/20 00:00 IMPRESSION: Heterogeneous avascular solid structure with internal cystic spaces at the site of palpable abnormality in the left elbow that measures 3.7 x 2.1 x 1.8 cm. Does the patient have a history of gout? IMPRESSION//RECOMMENDATION: 1. 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 [Acute on chronic biventricular systolic and diastolic heart failure]. Today's exam shows no summation gallop. His heart rate is much improved but not optimally controlled. Continue Toprol-XL at 100 mg p.o. every 12 hours and losartan 50 mg p.o. every 12 hours. Continue present IV Lasix. The patient is level is still subtherapeutic. Hence we will give IV digoxin 0.125 mg extra dose IV today. 2. Dyspnea on exertion which is progressed to shortness of breath at rest secondary to biventricular failure 3. Leg edema secondary to pulmonary hypertension right heart failure. Heart failure is a combination of pulmonary hypertension and left heart failure. Left greater than right slightly. Venous Doppler ordered. 4. Dilated cardiomyopathy with severely reduced LV ejection fraction. 5. PULMONARY HYPERTENSION: At least moderate pulmonary hypertension: Expect will this should improve with the treatment of the patient's heart failure. 6. Symptoms suggestive of obstructive sleep apnea: Patient as an outpatient would be recommended to have a sleep study done. 7. Nephrolithiasis: At present asymptomatic 8. History of enlarged prostate. Asymptomatic on Flomax. 9.. Elevated hemoglobin A1c:? Prediabetes. Would need further work-up. 10. 11 hyperlipidemia: The patient has low HDL and a high LDL levels. Recommend statins. 11. Sinus tachycardia: This is most likely secondary to ongoing failure. We will also there seems to be element of anxiety is suspected. Hence we will try later a small dose of anti-anxiolytic agent. There is no change in the heart rate with the trial dose of anti-anxiolytic agent. Hence we will aggressively treat the patient's heart failure.IVabradine may be used, but I am not sure if there are its formulary in this hospital and also the wholesale itself will cause about $350 a month I am not sure if the patient can now afford this. 12. Later would recommend a stress test or a cardiac catheterization to assess presence or absence of coronary artery disease, and if present significance of the CAD lesions. 13. Cough seems to be suggestive of PND equal. This is resolved with current treatment. 14. Possible cellulitis of left lower extremity. Patient is on Keflex 15. The patient most likely has a lipoma in the back of his left elbow. 16. Obesity. Medications reviewed. Medical regimen and management plan discussed with attending provider on the case. Medical decision making is of high complexity. 40 minutes spent as patient more than 50% of time spent direct patient care. Will follow
[2020-03-30] MEDS: ATORVASTATIN CALCIUM 40 MG TABLET PO SCH (21:10)
[2020-03-30] MEDS: SPIRONOLACTONE 25 MG TABLET PO SCH (21:10)
--- NOTE | 2020-03-30 22:30 | PDOC PROGRESS REPORT ---
Subjective Progress Note for:: 03/30/20 Subjective:: Patient was seen and examined at bedside. He says that his edema has considerably decreased compared to admission. Denies any chest pain shortness of breath orthopnea palpitations. Complains of left elbow pain and redness. He is able to ambulate in the room adequately with no shortness of breath. Eager to know when he is going to be discharged Reason For Visit: ANASARCA Physical Exam Vital Signs: Temp Pulse Resp BP Pulse Ox 97.5 F 109 H 18 106/73 97 03/30/20 19:32 03/30/20 19:32 03/30/20 19:32 03/30/20 19:32 03/30/20 19:32 Intake & Output 03/29/20 03/30/20 03/31/20 06:59 06:59 06:59 Intake Total 1010 1020 720 Output Total 4250 3050 Balance -3240 -2030 720 Weight 120 kg 120 kg General appearance: PRESENT: no acute distress Head exam: PRESENT: atraumatic, normocephalic Eye exam: PRESENT: EOMI, PERRLA. ABSENT: scleral icterus Mouth exam: PRESENT: moist Neck exam: PRESENT: full ROM. ABSENT: JVD Respiratory exam: PRESENT: clear to auscultation caty, crackles - minimal. ABSENT: accessory muscle use Cardiovascular exam: PRESENT: RRR, +S1, +S2 - normal, tachycardia Pulses: PRESENT: +2 pedal pulses bilateral GI/Abdominal exam: PRESENT: normal bowel sounds, soft. ABSENT: guarding, reboun d, tenderness Extremities exam: PRESENT: joint swelling, +2 edema, other - mild left lower leg swelling and erythema Neurological exam: PRESENT: alert, awake, oriented to person, oriented to place, oriented to time Psychiatric exam: PRESENT: normal mood Results Laboratory Results: 03/30/20 05:07 03/30/20 05:07 03/30/20 03/30/20 05:07 05:07 WBC 8.1 RBC 5.32 Hgb 14.2 Hct 44.0 MCV 83 MCH 26.7 L MCHC 32.3 RDW 15.1 H Plt Count 228 Seg Neutrophils % 71.8 Sodium 139.4 Potassium 4.3 Chloride 102 Carbon Dioxide 30 Anion Gap 7 BUN 16 Creatinine 0.73 Est GFR ( Amer) > 60 Glucose 98 Calcium 8.8 03/23/20 03/23/20 03/23/20 12:32 12:32 12:32 Creatine Kinase 140 CK-MB (CK-2) 3.61 Troponin I 0.045 NT-Pro-B Natriuret Pep 56587 H 03/23/20 15:50 Creatine Kinase CK-MB (CK-2) Troponin I 0.040 NT-Pro-B Natriuret Pep Impressions: Venous Doppler Study 03/27/20 00:00 IMPRESSION: 1. Limited evaluation of the bilateral lower extremities due to edema. 2. NO EVIDENCE DVT OR SVT IN EITHER LEG. Chest X-Ray 03/27/20 06:00 IMPRESSION: Cardiomegaly. No other significant findings in the chest. Extremity Ultrasound 03/28/20 00:00 IMPRESSION: Heterogeneous avascular solid structure with internal cystic spaces at the site of palpable abnormality in the left elbow that measures 3.7 x 2.1 x 1.8 cm. Does the patient have a history of gout? Assessment and Plan - Diagnosis (1) Acute on chronic congestive heart failure Qualifiers: Heart failure type: systolic Qualified Code(s): I50.23 - Acute on chronic systolic (congestive) heart failure Is this a current diagnosis for this admission?: Yes Plan: -Ejection fraction 15 to 20% -Echo showed decreased LV function and dilated LV -No prior history of myocardial infarction or cardiomyopathy -Positive family history of coronary artery disease father underwent CABG at the age of 50s -Weight down from 135 to 120 kg -Currently on furosemide 40 mg IV twice daily diuresing well. Will likely switch to oral diuretics in the coming days -Also on Lipitor, beta-thais losartan and statin -Cardiology following plan to work him up for causes of heart failure outpatient (2) Tachycardia Is this a current diagnosis for this admission?: Yes Plan: Sinus tach likely secondary to congestive heart failure -Metoprolol toprol XL increased to 100 mg twice daily which is the maximum dose -Also on digoxin 0.25 daily -Will discuss with cardiology if he can get ivabradine better control heart rate (3) Lower extremity edema Is this a current diagnosis for this admission?: Yes Plan: DVT ruled out. It appears to be secondary to his gross edema and anasarca. - We will continue with diuresis - on keflex (4) Hyperlipidemia Qualifiers: Hyperlipidemia type: pure hypercholesterolemia Qualified Code(s): E78.00 - Pure hypercholesterolemia, unspecified; E78.0 - Pure hypercholesterolemia Is this a current diagnosis for this admission?: Yes Plan: Continue atorvastatin 40 mg nightly (5) Pleural effusion, right Is this a current diagnosis for this admission?: Yes Plan: Secondary to CHF. - will continue to diurese (6) Elevated hemoglobin A1c Is this a current diagnosis for this admission?: Yes Plan: Hemoglobin A1c of 6.6 [one time reading]. P Patient will benefit from weight loss for better glycemic control and overall wellbeing (7) Morbid obesity with BMI of 40.0-44.9, adult Is this a current diagnosis for this admission?: Yes Plan: BMI 42.8. Diet and lifestyle modification recommended. (8) Joint swelling Is this a current diagnosis for this admission?: Yes Plan: - left elbow swelling noted 2 days ago sudden - likely from gout secondary to lasix diuresus - no fever, no white count - uric acid normal range but does not really rule out gouty arthritis - will trial colchicine - Time Time Spent with patient: 25-34 minutes Anticipated Discharge Disposition: Home with Home Health Anticipated Discharge Timeframe: to be determined - Inpatient Certification Medical Necessity: Risk of Complication if Not Cared For in Hospital
[2020-03-31] MEDS: CEPHALEXIN 500 MG CAPSULE PO SCH ×2 (05:12→13:41)
[2020-03-31] MEDS: INSULIN LISPRO 100 UNIT/ML 3 ML VIAL SUBCUT SCH ×2 (08:27→12:12)
[2020-03-31] MEDS: DOCUSATE SODIUM 100 MG CAPSULE PO SCH (09:35)
[2020-03-31] MEDS: METOPROLOL SUCCINATE 50 MG TAB.SR.24H PO SCH (09:45)
[2020-03-31] MEDS: FUROSEMIDE INJ/PF 40 MG/4 ML SDV IV SCH (09:45)
[2020-03-31] MEDS: FAMOTIDINE 20 MG TABLET PO SCH (09:45)
[2020-03-31] MEDS: TAMSULOSIN HCL 0.4 MG CAP.SR.24H PO SCH (09:45)
[2020-03-31] MEDS: LOSARTAN POTASSIUM 50 MG TABLET PO SCH (09:45)
[2020-03-31] MEDS: SPIRONOLACTONE 25 MG TABLET PO SCH (09:45)
[2020-03-31] MEDS: DIGOXIN INJ 0.5 MG/2 ML AMPULE IV SCH (09:46)
[2020-03-31] MEDS: ENOXAPARIN SODIUM INJ 40 MG/0.4 ML DISP.SYRIN SUBCUT SCH (09:48)
--- NOTE | 2020-03-31 15:09 | Progress Note ---
Provider Note Provider Note: CARDIOLOGY PROGRESS NOTE by Dr. Munira Godwin on 03/31/2020 Subjective: The patient continues to be tachycardic in spite of optimal medical therapy. Is a concern for another coexisting process that is yet to be noted. Hence have discussed with the Dr. Burdick of [facility] in [place]. He has accepted the patient in transfer. This was arranged after discussion with the patient. The patient has no chest pain discomfort there is no shortness of breath. There is no PND orthopnea. He has no scrotal swelling now and his leg edema is much improved. His redness seems to be slightly better in the left lower leg. His left elbow swelling burst open and there is serosanguineous discharge. The patient states now the pain is not there anymore. There is no arrhythmias seen on the monitor. There is no PND orthopnea or wheezing or shortness of breath. There is no anginal symptoms. PHYSICAL EXAMINATION: The patient is moderately obese. In no acute distress. Selected Entries 03/31/20 12:52 Temperature 98.1 F Temperature Oral Source Pulse Rate 121 H Respiratory 18 Rate Blood Pressure 102/45 L Blood Pressure 64 Mean BP Location Right Arm BP Position Standing O2 Sat by Pulse 98 Oximetry Oxygen Delivery Room Air Method HEAD: Is atraumatic normocephalic. EYES: Pupils are equal round regular reactive to light accommodation. Extraocular movements are normal. There is no conjunctival pallor. There is no scleral icterus. EARS: Tympanic membranes are intact. External auditory canals are clear. NOSE: There is no deviated nasal septum. There is no inflammation of the nasal mucous membrane. MOUTH: Mucous membranes of mouth are moist. Tongue is moist. There is no ulcers. THROAT: There is no redness of the oropharynx. There is no exudates. SKIN: There is no skin rashes. There is no petechia or ecchymosis. NECK: Is supple there is JVD present. Carotids are equal there is no bruit there is no lymphadenopathy. There is no goiter. THERE is no accessory muscle respiration use. Trachea central. LUNGS: Shows bibasilar rales of CHF. There is no rhonchi or wheezing. HEART: S1-S2 is heard. There is NO S3 gallop present, and there is no S4 gallop. There is no summation gallop today. There is systolic murmur of mitral regurgitation and tricuspid regurgitation present. There is no rub. ABDOMEN: Soft obese nontender there is no hepatosplenomegaly. Bowel sounds are well heard. EXTREMITIES: Femorals are deep. Femorals are diminished. Leg pulses are difficult to palpate. There is no cyanosis or clubbing. Capillary refill is normal. There is mild edema bilaterally . The scrotal swelling has resolved.. Left lower extremity seems to be slightly bigger than the right. There is some redness in the lower part of the left leg and his left foot.? Cellulitis. There is no DVT . There is no calf tenderness. ANUS: The patient is conscious awake alert oriented x3 with no focal deficits. PSYCHIATRIC: The patient judgment insight are intact his affect is normal. The patient's 24-hour intake is 1020 mL. His 24-hour total urinary output is 3550 mL. Chest X-Ray 03/23/20 00:00 IMPRESSION: CARDIOMEGALY. SCATTERED ATELECTASIS IN THE RIGHT LUNG WITH RIGHT PLEURAL EFFUSION. Venous Doppler Study 03/27/20 00:00 IMPRESSION: 1. Limited evaluation of the bilateral lower extremities due to edema. 2. NO EVIDENCE DVT OR SVT IN EITHER LEG. Chest X-Ray 03/27/20 06:00 IMPRESSION: Cardiomegaly. No other significant findings in the chest. Extremity Ultrasound 03/28/20 00:00 IMPRESSION: Heterogeneous avascular solid structure with internal cystic spaces at the site of palpable abnormality in the left elbow that measures 3.7 x 2.1 x 1.8 cm. Does the patient have a history of gout? Labs- All tests 24 hr 03/30/20 03/30/20 03/31/20 16:01 21:04 06:18 POC Glucose 109 135 H 107 03/31/20 11:55 POC Glucose 149 H IMPRESSION//RECOMMENDATION: 1. 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 [Acute on chronic biventricular systolic and diastolic heart failure]. Today's exam shows no summation gallop. His heart rate is much improved but not optimally controlled. Continue Toprol-XL at 100 mg p.o. every 12 hours and losartan 50 mg p.o. every 12 hours. Continue present IV Lasix, and IV digoxin. 2. Dyspnea on exertion which is progressed to shortness of breath at rest secondary to biventricular failure. This is resolved there is no shortness of breath at rest. 3. Leg edema secondary to pulmonary hypertension right heart failure. Heart failure is a combination of pulmonary hypertension and left heart failure. Left greater than right slightly. This is vastly improved 4. Sinus tachycardia: In spite of IV digoxin and maximal dose of beta-thais and YVONNE inhibitor and IV Lasix the patient continues to be tachycardic. In view of this need to make sure that we are not overlooking other coexisting causes. The patient may benefit from MRI and work-up for underlying coronary artery disease. The patient has been discussed with Dr. Burdick and and the patient has been accepted for transfer to [facility] in [place]. This has been discussed with the patient. As mentioned earlier Ivabranadine n at present not a good option for the patient. 5. Dilated cardiomyopathy with severely reduced LV ejection fraction. 6. PULMONARY HYPERTENSION: At least moderate pulmonary hypertension: Expect will this should improve with the treatment of the patient's heart failure. 7. Symptoms suggestive of obstructive sleep apnea: Patient as an outpatient would be recommended to have a sleep study done. 8. Nephrolithiasis: At present asymptomatic 9. History of enlarged prostate. Asymptomatic on Flomax. 10.. Elevated hemoglobin A1c:? Prediabetes. Would need further work-up. 11 hyperlipidemia: The patient has low HDL and a high LDL levels. Recommend statins. 12. Later would recommend a stress test or a cardiac catheterization to assess presence or absence of coronary artery disease, and if present significance of the CAD lesions. 13. Cough seems to be suggestive of PND equal. This is resolved with current treatment. 14. Possible cellulitis of left lower extremity. Patient is on Keflex. This is improving 15. The patient most likely has a lipoma in the back of his left elbow. The skin over the left elbow swelling is broken and there is serosanguineous discharge.? Infected lipoma. Patient on Keflex. 16. Obesity. Medications reviewed. Medical regimen and management plan discussed with the attending provider on the case. Discussed with Dr. Burdick. Patient being transferred to [facility]. Patient aware of the benefits and risks of transfer. Medical decision making is of high complexity in view of the need to discuss the case with Dr. Burdick. We will sign off. Will follow the patient as an outpatient.
--- NOTE | 2020-03-31 15:53 | PDOC TRANSFER SUMMARY ---
General Admission Date/PCP: 03/23/20 14:03 Admission Date: 03/23/20 Transfer Date: 03/31/20 Accepting Facility: [facility] Resuscitation Status: Full Code - Transfer Diagnosis (1) Acute on chronic congestive heart failure Is this a current diagnosis for this admission?: Yes Diagnosis Summary: - admitted on the due to anasarca, SOB, orthopnea - BNP 10,100, CXR cardiomegaly - Echo EF 15-20%, moderate LV dilation, LV systolic dysfunction - lasix 40 mg IV BID - total weight loss 15 kg since admission (2) Tachycardia Is this a current diagnosis for this admission?: Yes Diagnosis Summary: - sinus rhythm but persistently more than 110 despite maximum dose of metoprolol and 0.25 mg a day of digoxin (3) Lower extremity edema Is this a current diagnosis for this admission?: Yes Diagnosis Summary: -Proved since admission (4) Hyperlipidemia Is this a current diagnosis for this admission?: Yes Diagnosis Summary: On Lipitor 40 mg (5) Pleural effusion, right Is this a current diagnosis for this admission?: Yes Diagnosis Summary: Likely secondary to acute heart failure. Imroving (6) Elevated hemoglobin A1c Is this a current diagnosis for this admission?: Yes (7) Morbid obesity with BMI of 40.0-44.9, adult Is this a current diagnosis for this admission?: Yes (8) Joint swelling Is this a current diagnosis for this admission?: Yes Diagnosis Summary: Left elbow joint swelling, noted with abscess spontaneously draining. Currently on cephalexin p.o.No signs of septic arthritis - Transfer Medications Home Medications: Carvedilol [Coreg 12.5 mg Tablet] 12.5 mg PO Q12 03/23/20 Furosemide [Lasix 40 mg Tablet] 40 mg PO DAILY 03/23/20 Spironolactone [Aldactone 25 mg Tablet] 25 mg PO DAILY 03/23/20 Tamsulosin HCl [Flomax] 0.4 mg PO DAILY 03/23/20 Transfer Medications: Current Medications Acetaminophen (Tylenol 325 Mg Tablet) 325 mg PO Q4HP PRN PRN Reason: FEVER >101 Stop: 04/22/20 13:45 Last Admin: 03/31/20 06:37 Dose: 325 mg Documented by: Albuterol/Ipratropium (Duoneb 3 Ml Ampul) 3 ml NEB RTQ6HP PRN PRN Reason: SHORTNESS OF BREATH Stop: 04/22/20 13:45 Atorvastatin Calcium (Lipitor 40 Mg Tablet) 40 mg PO QHS CARAL Stop: 04/25/20 21:59 Last Admin: 03/30/20 21:10 Dose: 40 mg Documented by: Cephalexin HCl (Keflex 500 Mg Capsule) 500 mg PO Q6 CARLA Stop: 04/05/20 17:59 Last Admin: 03/31/20 13:41 Dose: 500 mg Documented by: Dextrose (Dextrose Inj 50% Syringe (25 Gm/50 Ml)) 12.5 gm IV PRN PRN; Protocol PRN Reason: FOR BG 50-69 IN ALERT PATIENT Stop: 04/25/20 07:45 Dextrose (Dextrose Inj 50% Syringe (25 Gm/50 Ml)) 25 gm IV PRN PRN; Protocol PRN Reason: PER PROTOCOL Stop: 04/25/20 07:45 Digoxin (Lanoxin Inj 0.5 Mg/2 Ml Ampule) 0.25 mg IV DAILY [facility] Stop: 04/23/20 19:29 Last Admin: 03/31/20 09:46 Dose: 0.25 mg Documented by: Docusate Sodium (Colace 100 Mg Capsule) 100 mg PO DAILY CARLA Stop: 04/26/20 09:59 Last Admin: 03/31/20 09:35 Dose: Not Given Documented by: Enoxaparin Sodium (Lovenox Inj 40 Mg/0.4 Ml Disp.Syrin) 40 mg SUBCUT DAILY [facility] Stop: 04/23/20 09:59 Last Admin: 03/31/20 09:48 Dose: 40 mg Documented by: Famotidine (Pepcid 20 Mg Tablet) 20 mg PO Q12 CARLA Stop: 04/22/20 21:59 Last Admin: 03/31/20 09:45 Dose: 20 mg Documented by: Furosemide (Lasix Inj/Pf 40 Mg/4 Ml Sdv) 40 mg IV BID CARLA Stop: 04/25/20 17:59 Last Admin: 03/31/20 09:45 Dose: 40 mg Documented by: Glucagon (Glucagen Inj 1 Mg Vial) 1 mg IM PRN PRN; Protocol PRN Reason: Evaluate for BG < 70 Stop: 04/25/20 07:45 Glucose (Glutose 40% Gel 15 Gm Tube) 15 gm PO PRN PRN; Protocol PRN Reason: FOR BG 50-69 IN ALERT PATIENT Stop: 04/25/20 07:45 Glucose (Glutose 40% Gel 15 Gm Tube) 30 gm PO PRN PRN; Protocol PRN Reason: FOR BG < 50 IN ALERT PATIENT Stop: 04/25/20 07:45 Insulin Human Lispro (Humalog Insulin 100 Unit/1 Ml 3 Ml Vial) 0 - 12 unit SUBCUT ACHS [facility]; Protocol Stop: 04/25/20 07:59 Last Admin: 03/31/20 12:12 Dose: Not Given Documented by: Losartan Potassium (Cozaar 50 Mg Tablet) 50 mg PO Q12 [facility] Stop: 04/27/20 21:59 Last Admin: 03/31/20 09:45 Dose: 50 mg Documented by: Metoprolol Succinate (Toprol Xl 50 Mg Tab.Sr) 100 mg PO Q12 [facility] Stop: 04/29/20 21:59 Last Admin: 03/31/20 09:45 Dose: 100 mg Documented by: Ondansetron HCl (Zofran Inj/Pf 4 Mg/2 Ml Sdv) 4 mg IV Q4HP PRN PRN Reason: FOR NAUSEA/VOMITING Stop: 04/22/20 13:45 Promethazine HCl (Phenergan Inj 25 Mg/1 Ml Vial) 12.5 mg IV Q4HP PRN PRN Reason: FOR UNRESOLVED NAUSEA/VOMITING Stop: 04/22/20 13:45 Spironolactone (Aldactone 25 Mg Tablet) 25 mg PO Q12 [facility] Stop: 04/29/20 21:59 Last Admin: 03/31/20 09:45 Dose: 25 mg Documented by: Tamsulosin HCl (Flomax 0.4 Mg Cap.Sr) 0.4 mg PO DAILY [facility] Stop: 04/22/20 15:59 Last Admin: 03/31/20 09:45 Dose: 0.4 mg Documented by: - Allergies Allergies/Adverse Reactions: No Known Allergies Allergy (Verified 03/23/20 12:54) - Diet/Activity Discharge Diet: Cardiac Hospital Course Hospital Course: Patient is a 50-year-old male no significant cardiac history admitted on 23 March due to orthopnea edema and respiratory distress. He started to experience edema 2 months prior with associated orthopnea and shortness of breath. Family history is positive for coronary artery disease from the father had a heart attack at around . Upon arrival in the ED he was noted to be tachycardic to 124, blood pressure of 121/90 afebrile. Work-up revealed congestive heart failure BNP of 10,000 echo done revealed an ejection fraction of 15 to 20%, moderately dilated left ventricle LV systolic function reduced. Weight on admission was 135 kg. Was admitted to telemetry and was started on Lasix 40 IV twice daily. Cardiology was consulted. Started on Lipitor, beta- thais, ARB. He continued to improve throughout the admission with total weight loss of 15 kg. He was started on Aldactone today. Edema improved. He continues to be tachycardic 110s to 130s sinus rhythm. Senior [employer] Master Dr. Louie decided to transfer him to [facility] for further work-up for his acute congestive heart failure Physical Exam Vital Signs: Temp Pulse Resp BP Pulse Ox 98.1 F 121 H 18 102/45 L 98 03/31/20 12:52 03/31/20 12:52 03/31/20 12:52 03/31/20 12:52 03/31/20 12:52 Intake & Output 03/30/20 03/31/20 04/01/20 06:59 06:59 06:59 Intake Total 1020 1020 250 Output Total 3050 3550 1745 Balance -2030 -1700 -7910 Weight 120 kg 120 kg General appearance: PRESENT: no acute distress Head exam: PRESENT: atraumatic, normocephalic Eye exam: PRESENT: EOMI, PERRLA Mouth exam: PRESENT: moist Neck exam: ABSENT: carotid bruit, JVD Respiratory exam: PRESENT: crackles, symmetrical. ABSENT: rhonchi, wheezes Cardiovascular exam: PRESENT: +S1, +S2 - normal, tachycardia Pulses: PRESENT: +2 pedal pulses bilateral GI/Abdominal exam: PRESENT: normal bowel sounds. ABSENT: guarding, rebound, tenderness Extremities exam: PRESENT: other - left elbow awelling and arythema with draining abscess. no signs of other joint swelling Neurological exam: PRESENT: alert, awake, oriented to time Psychiatric exam: PRESENT: normal mood Results Laboratory Results: 03/30/20 05:07 03/30/20 05:07 03/23/20 03/23/20 03/23/20 12:32 12:32 12:32 Creatine Kinase 140 CK-MB (CK-2) 3.61 Troponin I 0.045 NT-Pro-B Natriuret Pep 30516 H 03/23/20 15:50 Creatine Kinase CK-MB (CK-2) Troponin I 0.040 NT-Pro-B Natriuret Pep Impressions: Venous Doppler Study 03/27/20 00:00 IMPRESSION: 1. Limited evaluation of the bilateral lower extremities due to edema. 2. NO EVIDENCE DVT OR SVT IN EITHER LEG. Chest X-Ray 03/27/20 06:00 IMPRESSION: Cardiomegaly. No other significant findings in the chest. Extremity Ultrasound 03/28/20 00:00 IMPRESSION: Heterogeneous avascular solid structure with internal cystic spaces at the site of palpable abnormality in the left elbow that measures 3.7 x 2.1 x 1.8 cm. Does the patient have a history of gout? Plan Discharge Plan: Transfer to [facility] for further work-up and management Time Spent: Greater than 30 Minutes
[2020-03-31 17:42] VITALS: BP 101/67
--- NOTE | 2020-03-31 23:12 | PDOC DISCHARGE SUMMARY ---
Impression - Admit/DC Date/PCP Admission Date/Primary Care Provider: 03/23/20 14:03 Discharge Date: 03/31/20 - Discharge Diagnosis (1) Acute on chronic congestive heart failure Is this a current diagnosis for this admission?: Yes (2) Tachycardia Is this a current diagnosis for this admission?: Yes (3) Lower extremity edema Is this a current diagnosis for this admission?: Yes (4) Hyperlipidemia Is this a current diagnosis for this admission?: Yes (5) Pleural effusion, right Is this a current diagnosis for this admission?: Yes (6) Elevated hemoglobin A1c Is this a current diagnosis for this admission?: Yes (7) Morbid obesity with BMI of 40.0-44.9, adult Is this a current diagnosis for this admission?: Yes (8) Joint swelling Is this a current diagnosis for this admission?: Yes - Additional Information Resuscitation Status: Full Code Discharge Diet: Cardiac Discharge Activity: Activity As Tolerated, Balance Activity w/Rest, Weigh Daily [facility]: [facility] [NO [facility]AL MD] - Home Medications: Tamsulosin HCl [Flomax] 0.4 mg PO DAILY 03/23/20 Acetaminophen [Tylenol 325 mg Tablet] 325 mg PO Q4HP PRN tablet 03/31/20 Atorvastatin Calcium [Lipitor 40 mg Tablet] 40 mg PO QHS tablet 03/31/20 Cephalexin Monohydrate [Keflex 500 mg Capsule] 500 mg PO Q6 capsule 03/31/20 Digoxin Inj [Lanoxin Inj 0.5 mg/2 mL Ampule] 0.25 mg IV DAILY ampul 03/31/20 Docusate Sodium [Colace 100 mg Capsule] 100 mg PO DAILY capsule 03/31/20 Enoxaparin Sodium [Lovenox Inj 40 mg/0.4 ml Disp.syrin] 40 mg SUBCUT DAILY disp.syrin 03/31/20 Famotidine [Pepcid 20 mg Tablet] 20 mg PO Q12 tablet 03/31/20 Furosemide [Lasix Inj/Pf 40 mg/4 ml Sdv] 40 mg IV BID vial 03/31/20 Insulin Lispro [Humalog Insulin (Lispro) 100 unit/mL] 0 - 12 unit SUBCUT ACHS unit 03/31/20 Ipratropium/Albuterol Sulfate [Duoneb 3 ml Ampul] 3 ml NEB RTQ6HP PRN vial.neb 03/31/20 Losartan Potassium [Cozaar 50 mg Tablet] 50 mg PO Q12 tablet 03/31/20 Metoprolol Succinate [Toprol Xl 50 mg Tab.sr] 100 mg PO Q12 tab.sr.24h 03/31/20 Ondansetron HCl/Pf [Zofran Inj/Pf 4 mg/2 ml Sdv] 4 mg IV Q4HP PRN vial 03/31/20 Spironolactone [Aldactone 25 mg Tablet] 25 mg PO Q12 tablet 03/31/20 Tamsulosin HCl [Flomax 0.4 mg Cap.sr] 0.4 mg PO DAILY cap.sr.24h 03/31/20 History of Present Illiness History of Present Illness: THAD HARRINGTON is a 50 year old male, no known past medical history presented to the ED due to worsening shortness of breath and lower extremity edema extending up to his scrotum which he has noted 2 months prior. Seen by his primary care physician micro[employer] infrastructure consultant and was started on beta-blockers Lasix and Aldactone. He denies any prior history of heart attack no IV drug use occasional alcohol drinker. He has a positive family history of coronary artery disease, Father had a heart attack in his 40s. In the emergency room it was noted that his BNP was up to 10,000. Cardiology was consulted and he was subsequently admitted for diuresis and work-up of congestive heart failure Hospital Course Hospital Course: During the course of his admission he was put on Lasix 40 IV twice daily. Cardiogram on his heart showed depressed ejection fraction, systolic heart failure. He also continued to have tachycardia out is entire admission. His edema significantly improved with the diuresis, however he continued to be tachycardic despite metoprolol and digoxin at maximum doses. He developed left elbow swelling and redness, he was started on cephalexin. Abscess spontaneously drained on the day of transfer. The microsoft infrastructure consultant deemed that he needs to be transferred to a tertiary care center for further work-up of her new onset heart failure. [facility] was contacted and they accepted the patient. He was eventually transferred on the eighth day of admission Physical Exam Vital Signs: Temp Pulse Resp BP Pulse Ox 98.1 F 115 H 20 101/67 95 03/31/20 12:52 03/31/20 16:19 03/31/20 16:19 03/31/20 16:19 03/31/20 16:19 Intake & Output 03/30/20 03/31/20 04/01/20 06:59 06:59 06:59 Intake Total 1020 1020 250 Output Total 2769 0230 1355 Balance -4590 -9995 -1559 Weight 120 kg 120 kg General appearance: PRESENT: no acute distress, cooperative Head exam: PRESENT: atraumatic, normocephalic Eye exam: PRESENT: EOMI, PERRLA Ear exam: ABSENT: bleeding Mouth exam: PRESENT: moist Throat exam: ABSENT: post pharyngeal erythema Neck exam: PRESENT: full ROM Respiratory exam: PRESENT: crackles - Animal, symmetrical, unlabored Cardiovascular exam: PRESENT: RRR, +S1 - Mole, +S2 - Normal Pulses: PRESENT: +2 pedal pulses bilateral Vascular exam: PRESENT: normal capillary refill GI/Abdominal exam: PRESENT: normal bowel sounds, soft. ABSENT: distended, guarding Extremities exam: PRESENT: full ROM, +1 edema, other - Left elbow swelling and redness, with spontaneously draining abscess Musculoskeletal exam: PRESENT: full ROM Neurological exam: PRESENT: alert, awake, oriented to person, oriented to time Psychiatric exam: PRESENT: normal mood Results Laboratory Results: WBC 8.1 10^3/uL (4.0-10.5) 03/30/20 05:07 RBC 5.32 10^6/uL (4.35-5.55) 03/30/20 05:07 Hgb 14.2 g/dL (13.5-17.0) 03/30/20 05:07 Hct 44.0 % (37.9-51.0) 03/30/20 05:07 MCV 83 fl (80-97) 03/30/20 05:07 MCH 26.7 pg (27.0-33.4) L 03/30/20 05:07 MCHC 32.3 g/dL (32.0-36.0) 03/30/20 05:07 RDW 15.1 % (11.5-14.0) H 03/30/20 05:07 Plt Count 228 10^3/uL (150-450) 03/30/20 05:07 Lymph % (Auto) 13.9 % (13-45) 03/30/20 05:07 [place] % (Auto) 11.1 % (3-13) 03/30/20 05:07 Eos % (Auto) 2.5 % (0-6) 03/30/20 05:07 Baso % (Auto) 0.7 % (0-2) 03/30/20 05:07 Absolute Neuts (auto) 5.8 10^3/uL (1.7-8.2) 03/30/20 05:07 Absolute Lymphs (auto) 1.1 10^3/uL (0.5-4.7) 03/30/20 05:07 Absolute Monos (auto) 0.9 10^3/uL (0.1-1.4) 03/30/20 05:07 Absolute Eos (auto) 0.2 10^3/uL (0.0-0.6) 03/30/20 05:07 Absolute Basos (auto) 0.1 10^3/uL (0.0-0.2) 03/30/20 05:07 Seg Neutrophils % 71.8 % (42-78) 03/30/20 05:07 PT 16.3 SEC (11.4-15.4) H 03/23/20 12:32 INR 1.29 03/23/20 12:32 Sodium 139.4 mmol/L (137-145) 03/30/20 05:07 Potassium 4.3 mmol/L (3.6-5.0) 03/30/20 05:07 Chloride 102 mmol/L (98-107) 03/30/20 05:07 Carbon Dioxide 30 mmol/L (22-30) 03/30/20 05:07 Anion Gap 7 (5-19) 03/30/20 05:07 BUN 16 mg/dL (7-20) 03/30/20 05:07 Creatinine 0.73 mg/dL (0.52-1.25) 03/30/20 05:07 Est GFR ( Amer) > 60 (>60) 03/30/20 05:07 Est GFR (MDRD) Non-Af > 60 (>60) 03/30/20 05:07 Glucose 98 mg/dL (75-110) 03/30/20 05:07 POC Glucose 149 mg/dL (70-110) H 03/31/20 11:55 Hemoglobin A1c % 6.6 % (4.7-6.0) H 03/23/20 15:50 Uric Acid 6.5 mg/dL (3.5-8.5) 03/29/20 04:57 Calcium 8.8 mg/dL (8.4-10.2) 03/30/20 05:07 Phosphorus 4.3 mg/dL (2.5-4.5) 03/28/20 05:11 Magnesium 2.4 mg/dL (1.6-2.3) H 03/28/20 05:11 Total Bilirubin 1.9 mg/dL (0.2-1.3) H 03/23/20 12:32 Direct Bilirubin 0.5 mg/dL (0.0-0.4) H 03/23/20 12:32 Neonat Total Bilirubin Not Reportable 03/23/20 12:32 Neonat Direct Bilirubin Not Reportable 03/23/20 12:32 Neonat Indirect Bili Not Reportable 03/23/20 12:32 AST 58 U/L (17-59) 03/23/20 12:32 ALT 49 U/L (<50) 03/23/20 12:32 Alkaline Phosphatase 84 U/L (38-126) 03/23/20 12:32 Creatine Kinase 140 U/L (55-170) 03/23/20 12:32 CK-MB (CK-2) 3.61 ng/mL (<4.55) 03/23/20 12:32 Troponin I 0.040 ng/mL 03/23/20 15:50 NT-Pro-B Natriuret Pep 54053 pg/mL (<125) H 03/23/20 12:32 Total Protein 7.2 g/dL (6.3-8.2) 03/23/20 12:32 Albumin 4.2 g/dL (3.5-5.0) 03/23/20 12:32 Triglycerides 88 mg/dL (<150) 03/23/20 15:50 Cholesterol 162.20 mg/dL (0-200) 03/23/20 15:50 LDL Cholesterol Direct 130 mg/dL (<100) H 03/23/20 15:50 VLDL Cholesterol 18.0 mg/dL (10-31) 03/23/20 15:50 HDL Cholesterol 23 mg/dL (>40) L 03/23/20 15:50 TSH 3.78 uIU/mL (0.47-4.68) 03/23/20 15:50 Free T4 2.11 ng/dL (0.78-2.19) 03/23/20 15:50 Free T3 pg/mL 3.50 pg/mL (2.77-5.27) 03/23/20 15:50 Urine Color DARK YELLOW 03/23/20 12:41 Urine Appearance SLIGHTLY-CLOUDY 03/23/20 12:41 Urine pH 5.0 (5.0-9.0) 03/23/20 12:41 Ur Specific [place] 1.017 03/23/20 12:41 Urine Protein 30 mg/dL (NEGATIVE) H 03/23/20 12:41 Urine Glucose (UA) NEGATIVE mg/dL (NEGATIVE) 03/23/20 12:41 Urine Ketones NEGATIVE mg/dL (NEGATIVE) 03/23/20 12:41 Urine Blood SMALL (NEGATIVE) H 03/23/20 12:41 Urine Nitrite NEGATIVE (NEGATIVE) 03/23/20 12:41 Urine Bilirubin NEGATIVE (NEGATIVE) 03/23/20 12:41 Urine Urobilinogen 4.0 mg/dL (<2.0) H 03/23/20 12:41 Ur Leukocyte Esterase TRACE (NEGATIVE) H 03/23/20 12:41 Urine WBC (Auto) 3 /HPF 03/23/20 12:41 Urine RBC (Auto) 1 /HPF 03/23/20 12:41 U Hyaline Cast (Auto) 13 /LPF 03/23/20 12:41 Squamous Epi Cells Auto <1 /HPF 03/23/20 12:41 Urine Mucus (Auto) FEW /LPF 03/23/20 12:41 Urine Creatinine 45.1 mg/dL (Not Estab.) 03/23/20 15:14 Urine Creatinine 49.3 mg/dL (22-328) 03/23/20 15:14 Urine Microalbumin 14.2 ug/mL (Not Estab.) 03/23/20 15:14 Microalb/Creat Ratio 31 mg/g creat (0-29) H 03/23/20 15:14 Urine Total Protein 15.0 mg/dL (<12) H 03/23/20 15:14 Urine Ascorbic Acid NEGATIVE (NEGATIVE) 03/23/20 12:41 Digoxin 0.93 ng/mL (0.8-2.0) 03/29/20 04:57 Urine Opiates Screen NEGATIVE 03/23/20 15:14 Urine Methadone Screen NEGATIVE 03/23/20 15:14 Ur Barbiturates Screen NEGATIVE 03/23/20 15:14 Ur Phencyclidine Scrn NEGATIVE 03/23/20 15:14 Ur Amphetamines Screen NEGATIVE 03/23/20 15:14 U Benzodiazepines Scrn NEGATIVE 03/23/20 15:14 Urine Cocaine Screen NEGATIVE 03/23/20 15:14 U Marijuana (THC) Screen UNCONFIRMED POSITIVE 03/23/20 15:14 03/23/20 03/23/20 03/23/20 12:32 12:32 15:50 CK-MB (CK-2) 3.61 Troponin I 0.045 0.040 NT-Pro-B Natriuret Pep 30548 H Impressions: Chest X-Ray 03/23/20 00:00 IMPRESSION: CARDIOMEGALY. SCATTERED ATELECTASIS IN THE RIGHT LUNG WITH RIGHT PLEURAL EFFUSION. Venous Doppler Study 03/27/20 00:00 IMPRESSION: 1. Limited evaluation of the bilateral lower extremities due to edema. 2. NO EVIDENCE DVT OR SVT IN EITHER LEG. Chest X-Ray 03/27/20 06:00 IMPRESSION: Cardiomegaly. No other significant findings in the chest. Extremity Ultrasound 03/28/20 00:00 IMPRESSION: Heterogeneous avascular solid structure with internal cystic spaces at the site of palpable abnormality in the left elbow that measures 3.7 x 2.1 x 1.8 cm. Does the patient have a history of gout? Plan Health Concerns: Patient was transferred Plan of Treatment: Work-up of causes for his acute heart failure Time Spent: Less than 30 Minutes Stroke Is this a Stroke Patient?: No Stroke Pt being discharged on Anti-thrombolytic therapy?: No Reason(s) for not prescribing Anti-thrombolytic therapy:: Not indicated Stroke Pt being discharged on Anti-coagulation therapy?: No Reason(s) for not prescribing Anti-coagulation therapy:: Not indicated Stroke Pt being discharged on Statins?: No Reason(s) for not prescribing Statins therapy:: Not indicated Acute Heart Failure - Is this a Heart Failure Patient?: Yes Documentation of LVEF assessment?: Yes LVEF: LVEF Less Than or Equal to 35% Anticoagulant Therapy: No, document contraindications Reason(s) not Discharged on Anticoagulant Therapy: Other Anticoagulant Therapy Reason - Other: Not indicated Discharged on Evidence-Based Beta Blockers: Yes Discharged on ARNI?: No-Document Contraindications Reason(s) not discharged on ARNI: ACEI use within the prior 36 hours Discharged on ARB?: Yes For LVEF <35%, discharged on Aldosterone Antagonist?: Yes Follow-up Appointment scheduled within 7 days?: Yes
== END 2020-03-31 16:39 | disposition short-term general hospital (02) | DRG 292 ==
LOC: ER 12:10 → EH 14:03 → 4N 17:35
PROVIDERS: ADMIT Internal Medicine; ATTEND Internal Medicine
DX: I50.43 Acute on chronic combined systolic (congestive) and diastolic (congestive) heart failure (principal); Z68.41 Body mass index [BMI] 40.0-44.9, adult; L03.116 Cellulitis of left lower limb; I42.0 Dilated cardiomyopathy; Z87.891 Personal history of nicotine dependence; R00.0 Tachycardia, unspecified; E66.01 Morbid (severe) obesity due to excess calories; I27.20 Pulmonary hypertension, unspecified; N40.0 Benign prostatic hyperplasia without lower urinary tract symptoms; E78.5 Hyperlipidemia, unspecified; G47.33 Obstructive sleep apnea (adult) (pediatric); E78.00 Pure hypercholesterolemia, unspecified; L02.414 Cutaneous abscess of left upper limb; Z79.899 Other long term (current) drug therapy; Z87.442 Personal history of urinary calculi; Z82.49 Family history of ischemic heart disease and other diseases of the circulatory system
CPT/HCPCS: 36415; 71045; 71046; 76882; 80048; 80053; 80061; 80162; 80307; 81001; 82043; 82550; 82553; 82570; 82962; 83036; 83735; 83880; 84100; 84156; 84439; 84443; 84481; 84484; 84550; 85025; 85610; 93005; 93010; 93306; 93970; 94660; 99285; J1160; J1650; J1815; J1940; J3490

== ENCOUNTER → 2020-04-28 | Outpatient (CLI) | payer OTHER ==
[2020-04-29 09:22] LABS: ANION GAP 9 (5-19); BLOOD UREA NITROGEN 30 mg/dL (7-20); CALCIUM 9.9 mg/dL (8.4-10.2); CARBON DIOXIDE 33 mmol/L (22-30); CHLORIDE 97 mmol/L (98-107); DIGOXIN 1.35 ng/mL (0.8-2.0); GLUCOSE 105 mg/dL (75-110); POTASSIUM 4.9 mmol/L (3.6-5.0)
== END ==
LOC: CCC 08:20
PROVIDERS: ATTEND Internal Medicine
DX: I11.0 Hypertensive heart disease with heart failure (principal); I50.40 Unspecified combined systolic (congestive) and diastolic (congestive) heart failure; J70.3 Chronic drug-induced interstitial lung disorders; R73.09 Other abnormal glucose
CPT/HCPCS: 36415; 80048; 80162; 83036; 84443